=== PATIENT | male | born 1985 | race Caucasian/White ===

== ENCOUNTER 2025-05-31 15:54 | Inpatient (IN) | payer OTHER, SELFPAY ==
[2025-05-31] VITALS (14 sets, daily range): BP systolic 109–152; BP diastolic 69–136; BMI 30.6; BMI 29.9
--- NOTE | 2025-05-31 13:29 | CON.CAR ---
Addendum entered and electronically signed by Bruce Corral MD 05/31/25 16:40:
Attending addendum: Patient seen and examined. PA note reviewed and findings independently confirmed by me. I have met and examined the patient independently. Briefly, this is a 40-year-old gentleman with a longstanding medical history of poorly
controlled diabetes, hypertension, hyperlipidemia, peripheral vascular disease s/p right BKA and nonhealing wound on the left leg. He presented to [facility] for evaluation of chest pressure and shortness of breath. His symptoms began the
evening before admission. He denies any prior history of chest discomfort. He states that he is diabetes since his 20s and had not really paid much attention to glycemic control until recently. He was admitted to [facility] for
approximately 2 months over the summer 2023. He underwent right below the knee amputation for nonhealing ulcer. He currently has a nonhealing wound on the left foot.
He is currently chest pain free. He received furosemide 80mg x 1 without significant diuresis.
He was found to have a Cr. of 2.0, K of 6.4, Gluc: 506, a ProBNP of 7670
-05/31/2025: Echo: LV: Normal size and EF 20-25% with mid-distal anterior, apical, mid-distal anterolateral, distal inferior HK. RV: Normal, LA: Normal, RA: Normal, MV: Mild MR, AV: No AI or , TV: Trace TR with PAP 35-40 mmHg
05/31/2025: CT chest: Extensive bilateral airspace disease suspicious for multifocal pneumonia vs interstitial pulmonary edema
ECG: Sinus rhythm with diffuse ST depression II,III, aVF and V4-V6.
Physical exam:
GEN: AAO x 3. He is arousable and conversant but immediately closes his eyes and falls back to sleep when you stop talking to him. He denies chest discomfort. Lying at 30-degrees and looks comfortable. No acute distress
HEENT: NC/AT, sclera are anicteric
NECK: Elevated JVP
LUNGS: Scattered wheezing with diffuse rhonchi base to apex. Scattered crackles.
CV: Regular rate and rhythm. Normal S1/S2. No S3, No S4. Murmur: None
ABD : Soft, NT, ND, No HSM. Bowel sounds are present.
EXT: Right below knee. Left trace edema. Sock is worn on the left foot. No radial pulse bilaterally. Femoral pulses are diminished.
IMPRESSION:
-Non ST elevation: Currently chest pain free
-Dilated cardiomyopathy presumed ischemic / Acute on chronic combined systolic and diastolic congestive hear failure.
-Suspected multivessel coronary artery disease
-Poorly controlled diabetes mellitus
-Unknown Lipids
-Severe PVDz s/p right BKA and nonhealing wound
-Renal insufficiency: Suspect some degree of acute on chronic
-Hyperkalemia
RECOMMENDATIONS:
-Trend serial troponin, obtain fasting lipids and HgbA1c
-Clinically and radiographic evidence of significant volume overload: Likely benefit from IV nitro and IV furosemide
-Will need Nephrology consult to address multiple issues including presumed acute on chronic renal insufficiency, Hyperkalemia
-Medical therapy to include:
IV heparin
High intensity statin beginning this evening
aspirin +/- Plavix
IV Furosemide
Eventual addition of heart failure recommended beta earnest
KELSY / ARB when renal function stabilizes
Possible spironolactone when renal function stabilizes
-Will clearly need invasive angiography with high clinical suspicion for multivessel coronary artery disease
-Contrast load earlier today will need to watch renal funciton.
Original Note:
Consultation
Consultation Request
Date/Time Consultation Requested: 05/31/25
Date/Time Consultation Performed: 05/31/25
Requesting Provider: Dr. Calderón in the ER
Performing Provider: Dr. KUNAL Ledesma
Reason for Consultation: Chest pain, SOB
Medical History
-
History of Present Illness:
Patient came to the ER with chest pain and SOB and cardiology is consulted for symptoms and abnormal ECG. Patient says chest pain started while seated at his computer last night. Pain is substernal without radiation. He has SOB that has been
persistent since pain started. Pain comes and goes, pain will start spontaneously at rest and last for an hour before spontaneously resolving. He has never had a pain like this before. He came to the ER today due to ongoing symptoms. Patient has no
h/o CAD, but has a previous right BKA from 04/2024. Patient was admitted to [facility] from 2 months in the summer 2023, but patient does not recall having cardiac work up and specifically denies peripheral angiogram prior to BKA. Patient's mother has a h/o
recurrent DVT. Patient's father shared concerns that patient is sedentary. Patient sent for CTA for PE and it ended up being negative for PE. Patient returned to the ER and had urgent bedside echo that showed EF 15-20% and only the inferior and
basal segments move well. In that time Troponin returned at 2.1 and pro-BNP 7670.
PMH:
Type 1 diabetic since age 24
PAD s/p right BKA
Past Medical History
Past Medical History: Other (in HPI)
Past Surgical History: Other (right BKA at [facility] 04/2024)
Social History
Tobacco: Non-Smoker
Alcohol: Occasional
Drug: None
Personal: Single
Living: With Family (living with his parents since BKA summer 2023)
Family History
Family History: Other (mother with recurrent DVTs and chronic Eliquis)
Allergies / Home Medications
Allergy/AdvReac Type Severity Reaction Status Date / Time
No Known Allergies Allergy Unverified 05/31/25 12:58
Review of Systems
-
History Source: Patient and Family (father sitting bedside helps with HPI)
All other systems: Negative unless noted
Physical Exam
Vital Signs
Temp Pulse Resp BP Pulse Ox
98.8 F 117 16 137/94 87
05/31/25 12:48 05/31/25 12:48 05/31/25 12:48 05/31/25 12:48 05/31/25 12:48
GEN: AAOx3
HEENT: EOMI, MMM
LUNGS: 2 L NC. Dyspneic with conversation. Clear anterolaterally without wheeze
CV: Sinus tachycardia on tele. Reg, S1/S2, no murmur
ABD: soft, BS+, NT, ND
EXT: s/p right BKA. Left LE +1-2 edema. LLE foot wound covered with dressing from home.
NEURO: Gross non-focal
SKIN: No rash
Lab Results
CBC 05/31/2025: Hgb 10.3, HCT 30.3, WBC 11.7, PLT 221,000
CMP: Sodium 131, potassium 6.4, BUN 47, creatinine 2.0, glucose 506, troponin 2.11, proBNP 7670, AST 30, ALT less than 30
Impression / Plan
-
PCP Dr. Dahl affiliated with [facility]
Cardiology: None
Impression:
Presented with chest pain, SOB and hypoxia 05/31/25
ACS
Elevated Troponin, initial Troponin 2.1
CM EF 15-20% by preliminary echo 05/31/25
Anterior and anterolateral WMA on echo 05/31/25
JASON on possible CKD
Hyperkalemia
Type 1 diabetic since age 24
Hyperglycemia
PAD s/p right BKA
Acute HFrEF
Echo 04/26/24: [facility] study, EF 55-60%, no significant valve disease
Echo 05/31/25: EF 15-20%, inferior and basal segments move best
Labs 11/08/2024: Labs from PCP office, blood sugar 210, BUN 34, creatinine 1.23, sodium 135, potassium 5.0, AST 17, ALT 17
Plan:
-Patient came to the ER with chest pain and SOB and cardiology is consulted for symptoms and abnormal ECG. Patient says chest pain started while seated at his computer last night. Pain is substernal without radiation. He has SOB that has been
persistent since pain started. Pain comes and goes, pain will start spontaneously at rest and last for an hour before spontaneously resolving. He has never had a pain like this before. He came to the ER today due to ongoing symptoms. Patient has no
h/o CAD, but has a previous right BKA from 04/2024. Patient was admitted to [facility] from 2 months in the summer 2023, but patient does not recall having cardiac work up and specifically denies peripheral angiogram prior to BKA. Patient's mother has a h/o
recurrent DVT. Patient's father shared concerns that patient is sedentary. Patient sent for CTA for PE and it ended up being negative for PE. Patient returned to the ER and had urgent bedside echo that showed EF 15-20% and only the inferior and
basal segments move well. In that time Troponin returned at 2.1 and pro-BNP 7670.
-ECG reviewed by me with sinus tachycardia and inferior and anterior ST changes.
-Initial Troponin 2.1. Patient had chest pain on arrival to ER and now reports that he is pain free with oxygen and Heparin gtt. Will manage as NSTEMI.
-Agree with Heparin gtt
-Aspirin 324 mg PO x1 given in the ER. Patient was not taking a daily aspirin prior to admission
-Lopressor 25 mg PO x1 now
-Urgent bedside echo as noted above.
-Patient with JASON, Cre was 2.0 on admission and baseline Cre 1.23 in 11/2024 based on records I got when I called his PCP. I also updated patient's PCP on current situation and left my phone number in case they wanted to call back to discuss.
-Also noted to be hyperkalemic and glucose and insulin have been given.
-Check CVE, patient was not taking a statin prior to admission
-Patient was diagnosed with type 1 diabetes at age 24 after passing out at a republic[employer] with friends, but not waking up. Patient's father feels that patient does not check blood sugars regularly, he does not use a Dexcom and instead uses fingerstick
glucose monitoring at home and it is unclear how often he completes this. Patient reports his last HgbA1c was 7%, but cannot tell me when that was completed other than to say it was around the time that he had his 2-month hospitalization at [facility].
Patient's father also reports that he does not often see patient giving himself insulin injections and questions how often that is happening.
-Case reviewed with patient's father bedside, ER attending and then hospitalist attending.
[2025-05-31] MEDS: ASPIRIN 325 MG PO (13:31)
[2025-05-31 13:34] LABS: Hematocrit 30.3 % (39.0-52.0); Hemoglobin 10.3 g/dL (13.0-18.0); Mean Corp Hgb Conc. 34.0 g/dL (33.0-37.0); Mean Corpuscular Volume 89.1 fL (80.0-94.0); Nucleated Red Blood Cells % 0 % (-); Platelet Count 221 10^3/uL (130-400); Red Cell Dist. Width 13.1 % (11.5-14.5)
--- NOTE | 2025-05-31 13:40 | ED.GENMED ---
History of Present Illness
General
Chief Complaint: Weakness
Source: patient
Exam Limitations: none
Time Seen by Provider: 05/31/25 13:16
Nursing documentation reviewed up to this point in time: agreed with
History of Present Illness
History of Present Illness:
40-year-old male long-term diabetic status post BKA on the right presents with chest pain and shortness of breath with weakness onset about 3 days ago describes a pressure in his chest intermittent whole body feels weak here he is tachycardic
hypoxic mother has a history of blood clots he tells me
Past History
Past History
ED Past Medical History: IDDM; Negative [place]
ED Past Surgical History: Negative Cardiac
Social History
Tobacco: Non-smoker
Alcohol: None
Drug: None
Living: with family
Employment: Employed
Family History
Family History: Diabetes
Review of Systems
Review of Systems
All Other Systems: Not applicable
Constitutional: Reports fatigue; Denies fever
EENT: Reports no symptoms
Respiratory: Reports trouble breathing
Cardiac: Reports chest pain; Denies diaphoresis or syncope
ABD/GI: Reports no symptoms
: Reports no symptoms
Musculoskeletal: Reports muscle stiffness
Skin: Reports no symptoms
Neurological: Reports weakness
Endocrine: Reports no symptoms
Psychiatric: Reports no symptoms
Phy Exam
Physical Exam
Physical Exam:
Physical Exam
General: Ill-appearing male
Neck: No jaundice
Heart: Tachycardic
Lungs: Diminished breath sounds
Abdomen: Obese none
Neuro: alert and oriented. no focal neurological deficits
Skin: no rash
Psychiatric: well kept. interactive and cooperative
Extremities: BKA on the right
Course
Orders/Labs/Results
Orders:
Orders
05/31/25 12:55
Electrocardiogram (*1) Urgent
Reason for Study: Chest Pain
05/31/25 12:56
EKG- Treatment ONCE
05/31/25 13:19
CT Chest PE Study Stat
Comment:
Reason For Exam: cp sob hr 117
CR Chest Single View Stat
Reason For Exam: spb
05/31/25 13:22
Aspirin 325 mg PO NOW STA
05/31/25 13:26
B-Hydroxybutyrate Urgent
Comment: ADD ON
COVID-19 Antigen Urgent
Source: Nasal Swab
Complete Blood Count/With Diff Urgent
Comprehensive Metabolic Panel Urgent
NT-proBNP Urgent
Comment: ADD ON
PTT Urgent
Troponin I Urgent
Influenza A+B Rapid Molecular Urgent
QUINTON Source: Nasal Swab
Specimen Description:
05/31/25 13:36
CARDIOLOGY CONSULT Urgent
Consulting Provider: Bruce Ledesma
Was physician already notified: Yes
05/31/25 13:37
Echo 2D MMode Color/Doppler Urgent
Reason for Study: sob cp
05/31/25 13:45
Add On- LAB Urgent
Tests Added?: proBNP
05/31/25 14:08
Calcium Gluconate 1,000 mg IV NOW STA
Dextrose 50%-Water [Dextrose 50% Syringe] 12.5 grams IV [id number] PRN
Insulin Human Regular [Novolin R] 10 units IV NOW STA
Sodium Bicarbonate 50 meq IV NOW STA
05/31/25 14:09
Bedside Glucose PRE IV Insulin- HyperK+ NOW
05/31/25 14:19
Glucose Stat
05/31/25 14:22
Furosemide [Lasix] 80 mg IV NOW STA
05/31/25 14:40
NEPHROLOGY CONSULT Routine
Consulting Provider: Antwon Bourne
Was physician already notified: Yes
05/31/25 14:45
Add On- LAB Urgent
Tests Added?: Beta hydroxybutyrate
Electrocardiogram (*1) Urgent
Reason for Study: Chest Pain
EKG- Treatment ONCE
05/31/25 14:51
Heparin 4,000 units IV NOW STA
Nursing to Place Non Medication Order As Directed
Physician Order: PTT 6 hours after initial start of Heparin infusion
05/31/25 14:55
PTT Urgent
Comment: Obtain baseline before beginning heparin infusion if not already collected
05/31/25 15:00
Heparin 81110 Units/250 ml 25,000 units in 250 ml IV PER PROTOCOL
Weight to be used for heparin protocol in kilograms (kg):: 99.4
Protocol:: Cardiac Tx/Acute Coronary
PTT Goal Range to be used:: PTT 73 to 111 seconds
Order type:: Initial
INITIAL Infusion Dose (UNITS/KG/hr) & then follow protocol:: 12 units/kg/hr
Infusion Dose in UNITS/hr & then follow protocol (UNITS/hr):: 1,000
INFUSION RATE in mL/hr & then follow protocol (mL/hr):: 10
PTT less than or equal to 64 seconds:: Increase rate by 200 units/hr (+ 2 mL/hr)
PTT 64.1 to 72.9 seconds:: Increase rate by 100 units/hr (+ 1 mL/hr)
PTT 73 to 111 seconds:: Target Range. No change in rate.
PTT 111.1 to 130.9 seconds:: Decrease rate by 100 units/hr (- 1 mL/hr)
PTT 131 to 199.9 seconds:: HOLD for 1 hr. Then decrease rate by 200 units/hr (- 2 mL/hr)
PTT greater than or equal to 200 seconds:: HOLD for 2 hrs & Notify Provider. Then decrease by 200 units/hr (-
2 mL/hr)
Lab follow-up:: Each change, PTT q6h until 2 consecutive are therapeutic. Then PTT
daily.
05/31/25 15:07
Metoprolol [Lopressor] 25 mg PO NOW STA
05/31/25 15:25
Notify MD As Directed
Notify physician if: Nurse to contact provider when glucose reaches 250 to obtain orders for diet
05/31/25 15:30
Troponin I Urgent
Reg Insulin 100 Units/100 ml [Novolin R Insulin Infusion] 100 units in 100 ml IV PER PROTOCOL
Initial dose in units/hr, then titrate:: 6
05/31/25 15:37
Admit/Transfer Patient As Directed
Co-Sign Provider:
Level of Care: Inpatient admission
Assign to:: IMU- Intermediate Care
Physician / Group: Citlaly Hay
Diagnosis: NSTEMI, hyperglycemia, hyperkalemia
Reason for Hospitalization: NSTEMI, hyperglycemia, hyperkalemia
Expected length of stay greater than two midnights?: Yes
ELOS- Estimated Length of Stay in days: 4
I certify the patient meets the requirements for IP care: Yes
PRN Pain Medication Management As Directed
May give lesser potent ordered pain med per pt: Yes
preference::
Protocol:: Medication orders for pain may be administered in a
manner that supports deferring to patient preference
when the pt is:
- Requesting an ordered lesser potent pain medication.
Least to most potent pain medications are defined
as: acetaminophen < NSAID < tramadol < opioids
(morphine, oxycodone, hydromorphone).
- Requesting a lesser dose of the same medication IF
ORDERED.
- Requesting a less intrusive route of administration
if both routes are prescribed by the provider (PO <
IV).
05/31/25 15:39
Code Status As Directed
Resuscitation Status: Full Code
Bedside Glucose POST IV Insulin- HyperK+ Q1HX2,Q2HX2
05/31/25 15:56
Glucose Stat
05/31/25 16:00
Bedside Glucose Monitoring As Directed
Frequency: Q1H
05/31/25 16:39
BMP [Basic Metabolic Panel] Urgent
05/31/25 20:00
Basic Metabolic Panel Q4
06/01/25 00:00
Basic Metabolic Panel Q4
06/01/25 04:00
Basic Metabolic Panel Q4
06/01/25 08:00
Basic Metabolic Panel Q4
06/01/25 12:00
Basic Metabolic Panel Q4
Abnormal Lab Results
05/31/25 05/31/25 05/31/25
13:26 14:19 15:30
WBC 11.7 H 10^3/uL
(4.8-10.8)
RBC 3.40 L 10^6/uL
(4.70-6.10)
Hgb 10.3 L g/dL
(13.0-18.0)
Hct 30.3 L %
(39.0-52.0)
Abs Immat Gran (auto) 0.1 H 10^3/uL
(0-0.05)
Absolute Neuts (auto) 10.3 H 10^3/uL
(1.4-6.5)
Absolute Lymphs (auto) 0.8 L 10^3/uL
(1.2-3.4)
Immature Gran % 0.8 H %
(0-0.5)
Neutrophils % 87.5 H %
(42.2-75.2)
Lymphocytes % 6.6 L %
(20.5-51.1)
Sodium 131 L mmol/L
(135-145)
Potassium 6.4 H* mmol/L
(3.5-5.1)
Carbon Dioxide 17 L mmol/L
(22-30)
BUN 47 H mg/dl
(9-20)
Creatinine 2.0 H mg/dL
(0.7-1.3)
Glucose 506 H* mg/dl 474 H* mg/dl
(70-99) (70-99)
Troponin I 2.110 H* ng/ml 2.900 H* D ng/ml
B-Hydroxybutyrate 1.11 H mmol/L
(0.02-0.27)
05/31/25 13:26
05/31/25 14:19
Vital Signs
Initial and Last Documented VS:
Initial Vital Signs
Temp Pulse Resp BP Pulse Ox
98.8 F 117 16 137/94 87
05/31/25 12:48 05/31/25 12:48 05/31/25 12:48 05/31/25 12:48 05/31/25 12:48
Last Documented Vital Signs
Temp Pulse Resp BP Pulse Ox
98.8 F 112 16 124/91 87
05/31/25 12:48 05/31/25 13:30 05/31/25 12:48 05/31/25 13:27 05/31/25 13:42
MDM/Problems Addressed
Differential Diagnosis Includes:
PE heart failure ACS pneumonia aspiration pneumothorax
MDM/Problems Addressed:
Chest pain shortness of breath
Chronic conditions affecting care: DM
Acute Exacerbation and/or Progression of Chronic Illness: DM
*Radiology
Radiology exam reviewed: radiology read reviewed
*Pulse Oximetry
SaO2: 87
Oxygen Mode of Delivery: Room air
Patient hypoxic: yes
*EKG
Interpreted by ED Provider?: Yes
Interpretation: abnormal
Comparison EKG: no comparison EKG present
Heart Rate: 118
Rate: tachycardiac
Rhythm: sinus
Ischemia: ST depression
*Jewelry Cutter Interpretation
Rate: tachycardiac
Interpretation: abnormal
Heart Rate: 118
Rhythm: sinus
*Critical Care Note
Total Time (30-74mins, 75-104mins- exclusive of procedures): 40
Update Note
Update Note:
2:20 PM update
Chest x-ray noted CT reviewed with radiology heart failure versus pneumonia suspect more heart failure troponin noted proBNP noted labs noted will treat with Lasix calcium insulin
Multiple conversations with cardiology will start on heparin plan for cath today, nephrology also been consulted hospitalist notified
CRITICAL CARE STATEMENT: A total of 40 minutes of critical care time was provided for this patient. This includes management of unstable vital signs, evaluation of the patient at bedside, reviewing the patient's pertinent medical records discussion
with EMS providers and patient's family in addition to discussion with consultants, review of old EKGs and review of pertinent medical records. This time with separate from time utilized to perform the aforementioned documented procedures
ED Attending Note
-
Portions of this chart may have been created with voice recognition software.� Occasional wrong word or��sound alike� substitutions may have occurred due to the inherent limitations of voice recognition software.
Discharge Plan
Departure
Patient Disposition: Admit
Date of Disposition: 05/31/25
Time of Disposition: 14:47
Admit to: ICU
Presentation/result/management discussed w/ accepting MD/DO: Hospitalist
Patient with high blood pressure during this ER visit?: No
Condition: Serious
Discharge Problem:
ACS (acute coronary syndrome), CHF (congestive heart failure), Diabetes, Acute kidney injury, Acute hyperkalemia
Interventions
Interventions:
*Risk Screen - Suicide Last Done: 05/31/25 12:52
*General Assessment Last Done: 05/31/25 12:48
*Neglect/Abuse Screening Last Done: 05/31/25 12:48
*ED- Fall Risk Assessment Last Done: 05/31/25 12:48
*ED COVID-19 Vaccine History Last Done: 05/31/25 12:48
ED- Cardiac Assessment Last Done: 05/31/25 13:42
ED- Neurological Assessment Last Done: 05/31/25 13:42
ED- Pulmonary Assessment Last Done: 05/31/25 13:42
[2025-05-31 13:46] LABS: APTT 26.8 Sec (23.4-35.0)
[2025-05-31 13:54] LABS: AST (SGOT) 30 U/L (17-59); Albumin 3.9 g/dl (3.5-5.0); Alkaline Phosphatase 116 U/L (38-126); Blood Urea Nitrogen 47 mg/dl (9-20); Calcium 8.4 mg/dl (8.4-10.2); Carbon Dioxide 17 mmol/L (22-30); Chloride 104 mmol/L (98-107); Glucose 506 mg/dl (70-99); Sodium 131 mmol/L (135-145); Total Protein 6.5 g/dl (6.3-8.2); eGFR 42.47
[2025-05-31 14:02] LABS: Troponin I 2.110 ng/ml
[2025-05-31 14:03] LABS: COVID-19 Antigen Negative (Negative)
[2025-05-31 14:06] LABS: ALT (SGPT) < 30 U/L (0-50); Potassium 6.4 mmol/L (3.5-5.1)
[2025-05-31] MEDS: LASIX 80 MG IV (14:26)
[2025-05-31] MEDS: SODIUM BICARBONATE 50 MEQ IV (14:26)
[2025-05-31] MEDS: NOVOLIN R 10 UNITS IV (14:27)
[2025-05-31] MEDS: CALCIUM GLUCONATE 1000 MG IV (14:27)
--- NOTE | 2025-05-31 14:57 | HPS.HSE ---
Family Physician
-
Family Physician:
Chief Complaint
-
chest pain and shortness of breath
History of Present Illness
Mr. Francis Leon is a 40 yo man with hx DM 1, PAD s/p BKA (2023) right presents to the ER with chest pain and shortness of breath.
Patient states symptoms started last night, hadn't experienced similar symptoms prior. Persisted this AM and so he came to the ER. No recent fevers/chills. Mild cough over past two weeks, non-productive. He denies swelling. He is currently
chest pain free.
No nausea/vomiting/diarrhea. No rash.
He denies smoking or alcohol use.
Patient states he hasn't missed any insulin doses but had a big bowl of Ramen which always causes his blood sugar to spike.
Medical History
Past Medical History
Past Medical History: Reports Other
Past Surgical History: Reports Orthopedic
Social History
Tobacco: Non-smoker
Alcohol: None
Family History
Family History: Not pertinent
Allergies / Home Medications
Allergies reflects when Allergies were last updated in [employer].
Home Medications with original date entered in [employer]
Allergy/Medication List:
Allergies
Allergy/AdvReac Type Severity Reaction Status Date / Time
No Known Allergies Allergy Unverified 05/31/25 12:58
Home Medications
insulin glargine 100 unit/mL (3 mL) subcutaneous pen (Lantus Solostar U-100 Insulin) 14 unit SC HS 05/31/25
insulin lispro 100 unit/mL subcutaneous pen 6 sliding scale dose SC AC 05/31/25
Review of Systems
-
History Source: Patient
A 12 point ROS was completed and negative except as noted: Yes
Physical Exam
Vital Signs
Vital Signs
Temp Pulse Resp BP Pulse Ox
98.8 F 112 16 124/91 87
05/31/25 12:48 05/31/25 13:30 05/31/25 12:48 05/31/25 13:27 05/31/25 13:42
Physical Exam
General: No Apparent Distress
HEENT: PERRLA
Respiratory: Clear; No Wheezes
Cardiac: S1/S2 and Regular Rhythm
GI: Soft and Non Tender
Skin: Warm and Dry; No Rash
Neuro: AO x 3
Psych: Calm
Laboratory Results
-
05/31/25 13:26
Laboratory Results
APTT 26.8 Sec (23.4-35.0) 05/31/25 13:26
Total Bilirubin 0.6 mg/dl (0.2-1.3) 05/31/25 13:26
AST 30 U/L (17-59) 05/31/25 13:26
ALT < 30 U/L (0-50) 05/31/25 13:26
Alkaline Phosphatase 116 U/L (38-126) 05/31/25 13:26
Troponin I 2.110 ng/ml H* 05/31/25 13:26
Data Reviewed
-
Diagnostic Radiology: Report Reviewed by me
Lab Data: Labs Reviewed by me
Impression/Plan
-
Mr. Francis Leon is a 40 yo man with hx DM 1, PAD s/p BKA right presents to the ER with chest pain and shortness of breath.
Triage VS: T 98.8, P 117, RR 16, BP 137/94, SpO2 87%
LABS: WBC 11.7, Hg 10.3, PLT 221, Na 131 (corrected 137), K+ 6.4, CO2 17, Cr 2.0, Glucose 506, AG = 10
liver enzymes WNL
Troponin 2.11
BNP 7670
Covid negative
EKG: sinus tach @ 114, ST depressions II, aVF, V5, V6
CHEST CT
IMPRESSION:
1. Negative for pulmonary embolism.
2. Fairly extensive bilateral airspace disease suspicious for multifocal pneumonia. Small bilateral pleural effusions, right greater than left with areas of interlobular septal thickening within both lower lobes. Pulmonary edema is also a
diagnostic consideration.
3. Additional findings above.
CXR
IMPRESSION:
Diffusely increased interstitial opacities with symmetric distribution with more confluent airspace disease within the lung bases. Radiographically, findings suggestive of pulmonary edema with multifocal pneumonia also consideration. No significant
pleural effusions.
MAR aspirin 325mg PO x 1, Lasix 80mg IV x 1, IV heparin gtt, Sodium bicarb 10 units regular insulin
NSTEMI
-s/p aspirin and initiation of IV heparin gtt
-bedside echo in the ER with WMA
-admit to IMU
-Cardiology consulted, plan for cardiac cath once labs more stable
-NPO after MN
-continue daily aspirin
-new start Lipitor 40mg qhs
-trend Troponin
-F/U A1c, Lipid profile
DM 1
Hyperglycemia
Non-Gap Metabolic Acidosis
-patient without anion gap acidosis but with hyperglycemia with BGL in 400's, hyperkalemia and NSTEMI, will start IV insulin gtt
-DM DONOR TECHNICIAN consult
-avoid fluids as patient is fluid overloaded
-monitor labs closely
-NPO until BGL < 250
-F/U A1c
Heart Failure reduced EF, acute exacerbation
Hypoxic Respiratory Insufficiency
-new diagnosis of heart failure with EF 15-20% seen on bedside echo in the ER with significant WMA
-abnl CT most suggestive of pulmonary edema as patient without symptoms suggestive of pneumonia
Hyperkalemia
-s/p lasix and IV insulin in the ER; IV Insulin gtt initiated
-repeat labs at 4:30 PM, q 4h BMP
-patient is NPO
Acute Kidney Injury
-Nephrology consulted
-patient s/p contrast load for CTA
-monitor closely with diuresis
DVT PPx IV heparin gtt
FULL CODE
Total Critical Care Time 60 minutes. I was immediately available to the patient and staff. I personally examined, reviewed labs, diagnostic images/reports, interpretations, treatment plans, discussed patient care with other providers and family
or caregivers (if patient is unable to make decisions), entered orders as appropriate and documented the medical record.
[2025-05-31] MEDS: HEPARIN 4000 UNITS IV (15:00)
[2025-05-31 15:03] LABS: Glucose 474 mg/dl (70-99)
[2025-05-31] MEDS: HEPARIN 25000 UNITS/250 ML IV (15:05)
[2025-05-31 15:13] LABS: APTT 26.0 Sec (23.4-35.0)
[2025-05-31] MEDS: LOPRESSOR 25 MG PO (15:17)
[2025-05-31 16:09] LABS: Troponin I 2.900 ng/ml
[2025-05-31] MEDS: NOVOLIN R INSULIN INFUSION 100 IV (16:12)
[2025-05-31 16:13] LABS: Glucose 403 mg/dl (70-99)
[2025-05-31] MEDS: NITROGLYCERIN PREMIX 250 IV (16:45)
--- NOTE | 2025-05-31 17:22 | W.CON.NEPH ---
Consultation
-
Date/Time Consultation Requested: May 31, 2025 4:30 PM
Date/Time Consultation Performed: May 31, 2025 5 PM
Requesting Provider: Dr. Calderón
Performing Provider: Dr. Bourne
Reason for Consultation: Acute kidney injury
Medical History
-
Chief Complaint: Acute kidney injury and hyperkalemia
History of Present Illness:
40-year-old male type I diabetic since his 20s status post BKA on the right presents with chest pain and shortness of breath with weakness onset about 3 days ago describes a pressure in his chest intermittent
Renal consultation was requested for creatinine of 2 and a potassium of 6.4
Patient has never seen a yarder but was told his kidney numbers were ' elevated' but unsure what his creatinine is normally.
Patient was found to have DKA as well as NSTEMI.
Past Medical History
Type 1 diabetes, BKA
Social History
Tobacco: Non-Smoker
Alcohol: None
Family History
Father diabetes type 2
Allergies / Home Medications
Allergy/AdvReac Type Severity Reaction Status Date / Time
No Known Allergies Allergy Unverified 05/31/25 12:58
�Medication �Instructions �Recorded �Confirmed �Type
insulin glargine 100 unit/mL (3 14 unit SC HS 05/31/25 05/31/25 History
mL) subcutaneous pen (Lantus
Solostar U-100 Insulin)
insulin lispro 100 unit/mL 6 sliding scale dose SC AC 05/31/25 05/31/25 History
subcutaneous pen
Review of Systems
-
Chest pressure no active pressure at this time. No urinary frequency urgency or hesitancy or hematuria
All other systems: Negative unless noted
Physical Exam
Vital Signs
Vital Signs
Temp Pulse Resp BP Pulse Ox
98.8 F 101 22 123/91 90
05/31/25 12:48 05/31/25 16:45 05/31/25 16:30 05/31/25 17:06 05/31/25 17:07
Lab Results
WBC 11.7 10^3/uL (4.8-10.8) H 05/31/25 13:26
RBC 3.40 10^6/uL (4.70-6.10) L 05/31/25 13:26
Hgb 10.3 g/dL (13.0-18.0) L 05/31/25 13:26
Hct 30.3 % (39.0-52.0) L 05/31/25 13:26
Plt Count 221 10^3/uL (130-400) 05/31/25 13:26
eGFR 42.47 05/31/25 13:26
Xbe-E-Kujdlktavib Pept 7670 pg/ml 05/31/25 13:26
Albumin 3.9 g/dl (3.5-5.0) 05/31/25 13:26
Physical Exam
General no acute distress
HEENT no cephalic atraumatic extraocular muscle intact no scleral icterus no JVD neck supple
lungs clear to auscultation bilateral
heart regular S1-S2 positive
abdomen soft nontender positive bowel sounds
extremities no edema pulses present bilateral right BKA
Neurologically nonfocal alert and oriented x 3
Skin no lesions no abrasions no petechiae
Psych normal affect no bizarre behavior
Data Reviewed
-
Radiology: Image Personally Visualized and interpreted
CT Scan: Image Personally Visualized and interpreted
Labs: Labs Reviewed by me, Discussed with Patient and Discussed with Family
Assessment/Plan
-
40-year-old male type I diabetic since his 20s status post BKA on the right presents with chest pain and shortness of breath with weakness onset about 3 days ago describes a pressure in his chest intermittent
Renal consultation was requested for creatinine of 2 and a potassium of 6.4
Patient has never seen a yarder but was told his kidney numbers were ' elevated' but unsure what his creatinine is normally.
Patient was found to have DKA as well as NSTEMI.
Status post CTA rule out PE negative
Impression.
Acute kidney injury uncertain baseline.
Pneumonia versus CHF.
Leukocytosis.
NSTEMI.
Hyperkalemia
Type 1 diabetes
DKA
Plan
DKA protocol
Heparin drip
Antibiotics
Urine indices ordered
Echocardiogram
Cardiology consult
Chemistries ordered
Check renal ultrasound
[2025-05-31 17:23] LABS: Glucose - Point of Care 327 mg/dl (70-99)
[2025-05-31] MEDS: LIPITOR 80 MG PO (17:44)
[2025-05-31 17:57] LABS: Troponin I 5.100 ng/ml
--- NOTE | 2025-05-31 17:59 | PTCARENOTE ---
Pt received from ED via stretcher. Pt shifted self over to unit bed without assistance. AAOx3. Drowsy. Denying pain at this time. Sinus tach on quality assurance monitor body. HR 90s - 100s. MAP > 65. Nitro gtt infusing @ 5 mcg/min. Pt denying chest pain. +1
pitting edema to LLE. Heparin gtt infusing @ 1000 units/hr. SaO2 94% on 6L NC. Harsh nonproductive frequent cough. Right base with coarse crackles. Diminished throughout with scattered rhonchi. Round abdomen. Pt NPO per orders. Insulin gtt infusing
per protocol, currently infusing @ 4 units/hr. Pt with (R) BKA. Left foot with diabetic ulcers. Pt states mom does wound care at home. Pt asked to bring instructions for wound care in.
[2025-05-31 18:11] LABS: Blood Urea Nitrogen 45 mg/dl (9-20); Calcium 8.6 mg/dl (8.4-10.2); Carbon Dioxide 17 mmol/L (22-30); Chloride 107 mmol/L (98-107); Estimated Creatinine Clearance 58 ml/min; Glucose 332 mg/dl (70-99); Potassium 5.3 mmol/L (3.5-5.1); Sodium 136 mmol/L (135-145); eGFR 48.20
[2025-05-31 18:11] LABS: Glucose - Point of Care 276 mg/dl (70-99)
[2025-05-31 19:12] LABS: Glucose - Point of Care 228 mg/dl (70-99)
[2025-05-31] MEDS: COREG 3.125 MG PO (20:01)
[2025-05-31 20:12] LABS: Glucose - Point of Care 193 mg/dl (70-99)
--- NOTE | 2025-05-31 20:13 | W.PN.UPDATE ---
Update Note
Progress Note Update
most recent glucose 193 after eating dinner
will transition to Lantus
Given patient is NPO after MN, will give Lantus 10 units and ISS, to be adjusted tomorrow with pre-meal insulin when diet ordered
once off insulin gtt can stop q4 BMP's
BMP to be done now to monitor K
[2025-05-31 20:43] LABS: APTT 37.9 Sec (23.4-35.0)
[2025-05-31 20:48] LABS: Blood Urea Nitrogen 50 mg/dl (9-20); Calcium 9.0 mg/dl (8.4-10.2); Carbon Dioxide 19 mmol/L (22-30); Chloride 106 mmol/L (98-107); Estimated Creatinine Clearance 55 ml/min; Glucose 195 mg/dl (70-99); Potassium 5.3 mmol/L (3.5-5.1); Sodium 135 mmol/L (135-145); eGFR 45.17
[2025-05-31] MEDS: LANTUS 0.1 UNITS SC (20:52)
[2025-05-31 21:03] LABS: Troponin I 8.230 ng/ml
[2025-05-31 21:58] LABS: Glucose - Point of Care 159 mg/dl (70-99)
[2025-06-01] VITALS (23 sets, daily range): BP systolic 110–145; BP diastolic 70–99
[2025-06-01 04:00] LABS: APTT 38.1 Sec (23.4-35.0)
[2025-06-01 04:10] LABS: Blood Urea Nitrogen 52 mg/dl (9-20); Calcium 8.6 mg/dl (8.4-10.2); Carbon Dioxide 23 mmol/L (22-30); Chloride 106 mmol/L (98-107); Estimated Creatinine Clearance 50 ml/min; Glucose 218 mg/dl (70-99); HDL Cholesterol 43 mg/dl; Magnesium 2.0 mg/dl (1.6-2.3); Potassium 5.5 mmol/L (3.5-5.1); Sodium 134 mmol/L (135-145); eGFR 40.06
[2025-06-01 04:28] LABS: Troponin I 9.480 ng/ml
[2025-06-01 04:49] LABS: LDL Cholesterol, Direct 150 mg/dl
[2025-06-01 04:52] LABS: Urine Character Clear (Clear)
[2025-06-01 05:29] LABS: Urine Squamous Cell None seen /LPF (Few)
--- NOTE | 2025-06-01 05:56 | PTCARENOTE ---
Received patient on an insulin, heparin, and nitro gtt. 8 pm blood sugar 193. Provider made aware and ordered a diet and lantus. Insulin gtt d/cd an hour later. No complaints of chest pain this shift. Continuing to trend troponins & ekgs to peak.
Heparin gtt running at 1400units/hr. Nitro gtt running at 5mcg/min. Next PTT,troponin, and ekg due at 1000. Patient incontinent of stool. Plan for renal ultrasound today. Will continue to monitor.
[2025-06-01 07:17] LABS: Glycohemoglobin (HgbA1c) 9.1 % (4.0-5.6)
--- NOTE | 2025-06-01 07:59 | PTCARENOTE ---
On walking rounds Pt is AAOx3 pleasant and cooperative. Pt has RBKA. Pt on 6 L O2 at 96%. Heparin is infusing at 14 ml/hr and Nitro at 5 mcg no chest pain at this time. Pt in ST
[2025-06-01] MEDS: COREG 3.125 MG PO ×2 (08:24→20:24)
[2025-06-01] MEDS: LASIX 40 MG IV ×2 (08:25→16:00)
[2025-06-01] MEDS: LOW STRENGTH ASPIRIN 81 MG PO (08:26)
[2025-06-01] MEDS: NOVOLOG FLEXPEN-LOW RESISTANCE 2 UNITS SC ×2 (08:57→12:20)
[2025-06-01] MEDS: NOVOLOG FLEXPEN SC ×3 (08:58→17:16)
[2025-06-01 09:11] LABS: Glucose - Point of Care 240 mg/dl (70-99)
[2025-06-01] MEDS: HEPARIN 25000 UNITS/250 ML IV (11:16)
[2025-06-01 11:24] LABS: Hematocrit 24.8 % (39.0-52.0); Hemoglobin 8.6 g/dL (13.0-18.0); Mean Corp Hgb Conc. 34.7 g/dL (33.0-37.0); Mean Corpuscular Volume 87.3 fL (80.0-94.0); Platelet Count 212 10^3/uL (130-400); Red Cell Dist. Width 13.2 % (11.5-14.5)
[2025-06-01 11:34] LABS: APTT 39.0 Sec (23.4-35.0)
--- NOTE | 2025-06-01 11:42 | W.PN.NEPH.PH ---
Today's Communication / Plan
-
Lasix continue
Assessment/Plan
-
40-year-old male type I diabetic since his 20s status post BKA on the right presents with chest pain and shortness of breath with weakness onset about 3 days ago describes a pressure in his chest intermittent
Renal consultation was requested for creatinine of 2 and a potassium of 6.4
Patient has never seen a set up technician but was told his kidney numbers were ' elevated' but unsure what his creatinine is normally.
Patient was found to have DKA as well as NSTEMI.
Status post CTA rule out PE negative
Impression.
Acute kidney injury uncertain baseline.
Pneumonia versus CHF.
Leukocytosis.
NSTEMI.
Hyperkalemia
Type 1 diabetes
DKA
Plan
DKA protocol
Heparin drip
Antibiotics
Urine indices ordered= protein creatinine ratio 1.7 likely diabetic etiology
Echocardiogram-ejection fraction 15 to 20%
Cardiology consult
Creatinine remains stable potassium improved
Check renal ultrasound no obstructive uropathy. No increased echogenicity with large kidneys at 12 cm consistent with diabetic kidney
This may be his baseline renal function has we do not have any outside laboratories.
Lasix twice daily
-
-
Date of Service: June 01, 2025
CC / HPI / ROS
-
Chief Complaint:
Presents with chest discomfort
History of Present Illness:
Acute versus chronic kidney disease and hyperkalemia with echo cardiogram finding ejection fraction 15 to 20% with DKA
Review of Systems:.
No chest pain or shortness of breath nonoliguric
Labs
-
Labs:
WBC 10.2 10^3/uL (4.8-10.8) 06/01/25 11:14
RBC 2.84 10^6/uL (4.70-6.10) L 06/01/25 11:14
Hgb 8.6 g/dL (13.0-18.0) L 06/01/25 11:14
Hct 24.8 % (39.0-52.0) L 06/01/25 11:14
Plt Count 212 10^3/uL (130-400) 06/01/25 11:14
Sodium Cancelled 06/01/25 12:00
Potassium Cancelled 06/01/25 12:00
Chloride Cancelled 06/01/25 12:00
Carbon Dioxide Cancelled 06/01/25 12:00
BUN Cancelled 06/01/25 12:00
Creatinine Cancelled 06/01/25 12:00
eGFR Cancelled 06/01/25 12:00
Glucose Cancelled 06/01/25 12:00
Calcium Cancelled 06/01/25 12:00
Khm-I-Tgskwsvnodp Pept 7670 pg/ml 05/31/25 13:26
Albumin 3.9 g/dl (3.5-5.0) 05/31/25 13:26
Physical Exam
-
Vital Signs:
Vital Signs
Temp Pulse Resp BP Pulse Ox
98.4 F 107 18 133/99 95
06/01/25 11:24 06/01/25 09:00 06/01/25 09:00 06/01/25 09:00 06/01/25 09:54
Respiratory:: Bilateral: CTA
Lung Excursion:: Normal
Abdomen:: Soft
Bowel Sounds:: Normal
Extremity Edema:: None: Bilateral:
Other Findings::
Right BKA
[2025-06-01 11:55] LABS: Troponin I 6.910 ng/ml
--- NOTE | 2025-06-01 12:19 | W.PN.CARDCBS ---
Today's Communication / Plan
-
Recommendations:
-Will discuss timing of right and left heart catheterization with nephrology. Ideally would prefer 48-72 hours between contrast exposure
-Troponin has peaked and trending lower. Will eventually need cath but for now is chest pain free
-Continue IV Diuresis
-Start hydralazine and continue IV nitro given severe LV dysfunction given Cr. of 2.
Start hydralazine 25mg po tid
Titrate hydralazine as tolerated for goal of 75mg tid
IV Nitro continue for now.
We could probably change from IV to PO nitro in next 24-48 hours if he remains chest pain free...Isosorbide dinitrate 20mg tid is trial based data
-Continue Coreg with slow titration maybe in 24 hours or so to 6.25 mg bid
-Continue high intensity statin
-Will load with Plavix given delay for cath and will start PPI if not already done
-Will need catheterization but needs more diuresis for now.
-Renewed heparin and nitro
-Follow H/H
-I spent 70 minutes reviewing data, discussing with patient and nephrology
Impression / Plan
-
PCP Dr. Dahl affiliated with [facility]
Cardiology: None
Impression:
-NSTEMI with peak troponin of 9.48 : Presented with chest pain, SOB and hypoxia 05/31/25
-Acute on chronic combined systolic and diastolic heart failure
CM EF 15-20% by echo 05/31/25
-Anterior and anterolateral WMA on echo 05/31/25
-JASON on possible CKD
-Anemia: Rectal heme negative today
-Hyperkalemia
-Poorly controlled Type 1 diabetic since age 24
-Hyperglycemia
-PAD s/p right BKA
-Acute HFrEF
Echo 04/26/24: [facility] study, EF 55-60%, no significant valve disease
Echo 05/31/25: EF 15-20%, inferior and basal segments move best
Labs 11/08/2024: Labs from PCP office, blood sugar 210, BUN 34, creatinine 1.23, sodium 135, potassium 5.0, AST 17, ALT 17
Plan:
-Will discuss timing of right and left heart catheterization with nephrology. Ideally would prefer 48-72 hours between contrast exposure
-Troponin has peaked and trending lower. Will eventually need cath but for now is chest pain free
-Continue IV Diuresis
-Start hydralazine and continue IV nitro given severe LV dysfunction given Cr. of 2.
Start hydralazine 25mg po tid
Titrate hydralazine as tolerated for goal of 75mg tid
IV Nitro continue for now.
We could probably change from IV to PO nitro in next 24-48 hours if he remains chest pain free...Isosorbide dinitrate 20mg tid is trial based data
-Continue Coreg with slow titration maybe in 24 hours or so to 6.25 mg bid
-Continue high intensity statin
-Will load with Plavix given delay for cath and will start PPI if not already done
-Will need catheterization but needs more diuresis for now.
-Will need to follow H/H
-I spent 70 minutes reviewing data, discussing with patient and nephrology
Progress Note - Training And Development Officer
Subjective
Date of Service: June 01, 2025
No chest pain but breathing is much better
Objective
Labs:
06/01/25 11:14
06/01/25 12:00
Labs
Hgb 8.6 g/dL (13.0-18.0) L 06/01/25 11:14
Hct 24.8 % (39.0-52.0) L 06/01/25 11:14
Plt Count 212 10^3/uL (130-400) 06/01/25 11:14
APTT 39.0 Sec (23.4-35.0) H 06/01/25 11:14
Sodium Cancelled 06/01/25 12:00
Potassium Cancelled 06/01/25 12:00
BUN Cancelled 06/01/25 12:00
Creatinine Cancelled 06/01/25 12:00
Glucose Cancelled 06/01/25 12:00
Troponins
05/31/25 05/31/25 05/31/25
13:26 15:30 17:00
Troponin I 2.110 H* 2.900 H* D Cancelled
05/31/25 05/31/25 05/31/25
17:00 17:20 20:24
Troponin I Cancelled 5.100 H* D 8.230 H* D
05/31/25 05/31/25 06/01/25
23:00 23:05 03:32
Troponin I Cancelled Cancelled 9.480 H*
06/01/25 06/01/25
11:14 22:30
Troponin I 6.910 H* D Cancelled
Vital Signs and I&O:
Vital Signs
Temp Pulse Resp BP Pulse Ox
98.4 F 104 16 144/91 95
06/01/25 11:24 06/01/25 11:00 06/01/25 11:00 06/01/25 11:00 06/01/25 11:00
Vital Signs
Temp Pulse Resp BP Pulse Ox
98.4 F 104 16 144/91 95
06/01/25 11:24 06/01/25 11:00 06/01/25 11:00 06/01/25 11:00 06/01/25 11:00
Intake & Output
05/29/25 05/30/25 05/31/25 06/01/25
23:59 23:59 23:59 23:59
Intake Total 240 / 240
Output Total 1999 300 / 300
Balance -1999 / -1999 -60 / -60
Physical exam:
Gen: Lying in bed in NAD. Speaks in full sentences
Lungs: Crackles right > left base
CV: RRR
Rectal: Brown heme negative
Ext: Right BKA, left ulcer
[2025-06-01 12:34] LABS: Glucose - Point of Care 241 mg/dl (70-99)
[2025-06-01 12:59] LABS: Glucose - Point of Care 221 mg/dl (70-99)
--- NOTE | 2025-06-01 13:32 | PN.DE.MGMTRT ---
Insulin Management
- -
06/01/2025 Diabetes Management Consult
Patient admitted 05/31 with CP SOB - NSTEMI. H RBKA, type 1 diabetes since age 24. Prior to admission was taking lispro 6 units AC with lantus 14 units @ HS. A1C on admission 9.1%, cr 2.1, eGFR 40.06.
Patient is awake alert and oriented able to discuss diabetes care. States he sees his primary doctor for ongoing diabetes care. Has glucose monitor with adequate supplies.
Glucose on admission 474. Received 10 units lantus @ hs, fasting glucose 218. Will increase hs lantus to 15 units and start AC novolog 5 units with low corrective. Patient for cardiac cath possibly Wednesday.
Discussed with nurse.
Will Follow
Diabetes History
- -
Type of Diabetes: 1
Pre-Admission Diabetes Regimen
05/31/25 05/31/25 05/31/25
13:26 17:20 20:24
Creatinine 2.0 H 1.8 H 1.9 H
06/01/25 06/01/25 06/01/25
00:00 03:32 04:00
Creatinine Cancelled 2.1 H Cancelled
06/01/25 06/01/25
08:00 12:00
Creatinine Cancelled Cancelled
Lab Results
Hemoglobin A1c 9.1 % (4.0-5.6) H 05/31/25 17:20
Insulin Pump Settings
IP Diabetes Regimen
05/31/25 05/31/25 05/31/25
13:26 14:19 15:56
Glucose 506 H* 474 H* 403 H
POC Glucose
05/31/25 05/31/25 05/31/25
17:11 17:20 18:00
Glucose 332 H
POC Glucose 327 H 276 H
05/31/25 05/31/25 05/31/25
19:01 20:01 20:24
Glucose 195 H
POC Glucose 228 H 193 H
05/31/25 06/01/25 06/01/25
21:46 00:00 03:32
Glucose Cancelled 218 H
POC Glucose 159 H
06/01/25 06/01/25 06/01/25
04:00 08:00 08:56
Glucose Cancelled Cancelled
POC Glucose 240 H
06/01/25 06/01/25 06/01/25
12:00 12:19 12:48
Glucose Cancelled
POC Glucose 241 H 221 H
Patient Education
[2025-06-01] MEDS: NOVOLOG FLEXPEN 5 UNITS SC ×2 (14:11→18:09)
[2025-06-01] MEDS: PLAVIX 600 MG PO (14:14)
--- NOTE | 2025-06-01 15:31 | W.PN.HOSP.TC ---
Today's Communication/Plan
-
Assessment / Plan
Assessment / Plan
General: No Apparent Distress, Comfortable and Conversant
HEENT: NormoCephalic, Moist mucous membranes, Atraumatic, nasal cannula in place
Respiratory: Clear and Non Labored Respirations
Cardiac: S1/S2 and Regular Rhythm; No Rub or Gallop
GI: Soft, Non Tender, Non Distended and Normal Bowel Sounds
Musculoskeletal: No Edema, right BKA, left foot wound with dressing CDI
Skin: Warm and dry
: NO Villafana
Neuro: Awake, Alert, Nonfocal/grossly intact
Psych: Calm and Intact Judgment/Insight
Mr. Leon is a 40-year-old male with a medical history of type 1 diabetes mellitus and PAD (status post BKA 2023) who presented with acute onset chest pain and shortness of breath. In the ED, he underwent CT angiography to evaluate which was
negative for pulmonary embolism but did show extensive bilateral pulmonary edema. Lab work revealed significantly elevated troponins. EKG did not show STEMI but did show nonspecific T wave abnormalities. Bedside echo showed severely reduced
ejection fraction with wall motion abnormalities. He was started on IV heparin drip and admitted for further evaluation and management.
NSTEMI, acute HFrEF:
- Continue IV heparin drip
- Echocardiogram shows LVEF 15 to 20% with regional wall motion abnormalities
- Continue IV nitro drip and IV Lasix for preload reduction
- Started on low-dose hydralazine which will be titrated up as able for afterload reduction
- Beta-blockade with low-dose carvedilol 3.125 mg twice daily, titrate up as able
- Cardiology following, left heart cath in the next 48 hours once volume status optimized and to protect kidneys considering contrast dye with CTA and ED
- Loaded with Plavix, continue DAPT
- Daily p.o. PPI
- Abnormal lipids with triglycerides 454 and total cholesterol 310 (LDL 150, HDL 43)
JASON:
- Creatinine on initial labs 2.0
- No history of CKD, unknown baseline renal function
- Likely due to poor perfusion in the setting of NSTEMI with acute HFrEF
- Monitor for improvement in renal function with diuresis
- Received contrast for CTA, will have to monitor renal function closely with upcoming left heart cath
Type 1 diabetes mellitus:
- Continue long and short acting insulin with additional sliding scale as needed
- Diabetic diet
- Continue Accu-Cheks
- Hemoglobin A1c 9.1%
Hyperkalemia:
- Mild with potassium of 5.5, likely related to JASON
- Continue telemetry monitoring
DVT prophylaxis: IV heparin
CODE STATUS: Full code
Total time spent on today's encounter was 45 minutes
Anticipated Discharge: > 48 hours
Subjective/Interval History
-
Date of Service: June 01, 2025
Patient was seen and examined at bedside this morning. Currently comfortable, saturating in the mid 90s but on 5 L via nasal cannula. He is not on oxygen at home.
Objective Data
-
Labs:
Laboratory Results
06/01/25 06/01/25 06/01/25
03:32 11:14 13:42
WBC 10.2
Hgb 8.6 L
Hct 24.8 L
Plt Count 212
APTT 38.1 H 39.0 H
Sodium 134 L Cancelled
Potassium 5.5 H Cancelled
Chloride 106 Cancelled
Carbon Dioxide 23 Cancelled
BUN 52 H Cancelled
Creatinine 2.1 H Cancelled
Glucose 218 H Cancelled
Calcium 8.6 Cancelled
06/01/25
18:00
WBC
Hgb Pending
Hct Pending
Plt Count
APTT Pending
Sodium Pending
Potassium Pending
Chloride Pending
Carbon Dioxide Pending
BUN Pending
Creatinine Pending
Glucose Pending
Calcium Pending
Vital Signs:
Vital Signs
Temp Pulse Resp BP Pulse Ox
97.8 F 103 12 144/91 96
06/01/25 14:17 06/01/25 14:00 06/01/25 14:00 06/01/25 11:00 06/01/25 14:00
I&O
05/31/25 06/01/25 06/02/25
06:59 06:59 06:59
Intake Total 240 / 240
Output Total 2300 / 2300 1100 / 1100
Balance -2060 / -2060 -1100 / -1100
Review of Systems
-
History Source: Patient
All other systems: Reviewed and negative
Physical Exam
-
General: No Apparent Distress
[2025-06-01] MEDS: APRESOLINE 25 MG PO ×2 (15:59→21:50)
--- NOTE | 2025-06-01 16:11 | CM ---
Patient with Hx DM, R BKA, left foot diabetic ulcers with Dx NSTEMI, HF, JASON. Plan eventual heart cath. O2 6L. Receiving IV Lasix, Heparin gtt, Nitro gtt. Wound care nurse consult pending. Per nurse; activity requires assist of 2.
Met with patient who resides with his parents in a 2 story house with 1 step at entrance and first floor bedroom/bath.
The patient was independent in ADLs and ambulation, wearing his right leg prosthesis.
He states he was active and able to go out.
The patient was going to [facility] weekly and his mother does his wound care at home.
DME - right leg prosthesis, wound care supplies
No prior VN or SNF
Prior [facility]
PCP - Reema Ceron
Pharmacy - [facility]
CM continuing to follow for d/c needs.
Plan home.
[2025-06-01] MEDS: NOVOLOG FLEXPEN-LOW RESISTANCE 3 UNITS SC (17:14)
[2025-06-01] MEDS: LIPITOR 80 MG PO (17:17)
[2025-06-01 17:28] LABS: Glucose - Point of Care 276 mg/dl (70-99)
[2025-06-01 18:19] LABS: Hematocrit 26.8 % (39.0-52.0); Hemoglobin 9.1 g/dL (13.0-18.0)
[2025-06-01 18:30] LABS: APTT 42.6 Sec (23.4-35.0)
--- NOTE | 2025-06-01 18:31 | PTCARENOTE ---
PT mother here doing wound care
[2025-06-01 18:35] LABS: Blood Urea Nitrogen 52 mg/dl (9-20); Calcium 8.3 mg/dl (8.4-10.2); Carbon Dioxide 24 mmol/L (22-30); Chloride 104 mmol/L (98-107); Estimated Creatinine Clearance 50 ml/min; Glucose 242 mg/dl (70-99); Potassium 5.1 mmol/L (3.5-5.1); Sodium 134 mmol/L (135-145); eGFR 40.06
[2025-06-01 21:42] LABS: Glucose - Point of Care 248 mg/dl (70-99)
[2025-06-01] MEDS: LANTUS 0.15 UNITS SC (21:50)
[2025-06-02] VITALS (24 sets, daily range): BP systolic 100–141; BP diastolic 60–116; BMI 29.0
[2025-06-02 00:10] LABS: Glucose - Point of Care 222 mg/dl (70-99)
--- NOTE | 2025-06-02 00:57 | PTCARENOTE ---
Heparin gtt remains in place, see worklist for titrations. Nitro gtt remains in place at ordered rate. Pt denies complaints at this time. Call barnes within reach. Care ongoing.
[2025-06-02 01:14] LABS: APTT 55.2 Sec (23.4-35.0)
[2025-06-02] MEDS: HEPARIN 25000 UNITS/250 ML IV ×2 (01:59→16:20)
[2025-06-02 05:58] LABS: Hematocrit 24.8 % (39.0-52.0); Hemoglobin 8.2 g/dL (13.0-18.0); Mean Corp Hgb Conc. 33.1 g/dL (33.0-37.0); Mean Corpuscular Volume 90.8 fL (80.0-94.0); Platelet Count 190 10^3/uL (130-400); Red Cell Dist. Width 13.2 % (11.5-14.5)
[2025-06-02 06:10] LABS: Blood Urea Nitrogen 59 mg/dl (9-20); Calcium 8.2 mg/dl (8.4-10.2); Carbon Dioxide 26 mmol/L (22-30); Chloride 104 mmol/L (98-107); Estimated Creatinine Clearance 50 ml/min; Glucose 178 mg/dl (70-99); Potassium 4.7 mmol/L (3.5-5.1); Sodium 135 mmol/L (135-145); eGFR 40.06
--- NOTE | 2025-06-02 08:42 | W.PN.CARDCBS ---
Today's Communication / Plan
-
Wean nitro drip, start isosorbide dinitrate
IV diuresis monitor intake and output
Continue up titration GDMT this weekend with planned left heart catheterization 06/04/2025
Impression / Plan
-
PCP Dr. Dahl affiliated with [facility]
Cardiology: None, first seen by Dr Bruce Corral
Impression:
-NSTEMI with peak troponin of 9.48 : Presented with chest pain, SOB and hypoxia 05/31/25
-Acute on chronic combined systolic and diastolic heart failure
CM EF 15-20% by echo 05/31/25
-Anterior and anterolateral WMA on echo 05/31/25
-JASON on possible CKD
-Anemia: Rectal heme negative today
-Hyperkalemia
-Poorly controlled Type 1 diabetic since age 24
-Hyperglycemia
-PAD s/p right BKA
-Acute HFrEF, improving
Echo 04/26/24: [facility] study, EF 55-60%, no significant valve disease
Echo 05/31/25: EF 15-20%, inferior and basal segments move best
Labs 11/08/2024: Labs from PCP office, blood sugar 210, BUN 34, creatinine 1.23, sodium 135, potassium 5.0, AST 17, ALT 17
Plan:
-Will discuss timing of right and left heart catheterization with nephrology. Ideally would prefer 48-72 hours between contrast exposure, tentative plan is for 06/04/2025
-Continue IV Diuresis, monitor intake and output, daily weight
- Continue hydralazine and continue IV nitro given severe LV dysfunction given Cr. of 2.
Tolerating hydralazine 25mg po tid
Titrate hydralazine as tolerated for goal of 75mg tid
IV Nitro continue for now, wean and start isosorbide dinitrate and uptitrate to goal
As patient remains chest pain free...Isosorbide dinitrate 20mg tid is trial based data, will start at 5 mg 3 times daily
-Continue Coreg with slow titration maybe in 24 hours or so to 6.25 mg bid
-Continue high intensity statin
-Will load with Plavix given delay for cath and will start PPI if not already done; in discussion with Dr. Corral, plan to give Plavix and hold Wednesday's dose
-Will need to follow H/H
Discussed with patient, nursing
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
Subjective
Date of Service: June 02, 2025
Patient seen and examined this morning. No acute events overnight. Patient resting comfortably in bed. Patient denies any chest pain, shortness of breath, palpitations, or weakness.Roughly 2.1 L output over last 24 hours
Objective
Labs:
06/02/25 05:29
06/02/25:
Labs
Hgb 8.2 g/dL (13.0-18.0) L 06/02/25:
Hct 24.8 % (39.0-52.0) L 06/02/25 05:
Plt Count 190 10^3/uL (130-400) 06/02/25 05:
APTT 55.2 Sec (23.4-35.0) H 06/02/25 00:51
Sodium 135 mmol/L (135-145) 06/02/25:
Potassium 4.7 mmol/L (3.5-5.1) 06/02/25:
BUN 59 mg/dl (9-20) H 06/02/25:
Creatinine 2.1 mg/dL (0.7-1.3) H 06/02/25:
Glucose 178 mg/dl (70-99) H 06/02/25:
Troponins
05/31/25 05/31/25 05/31/25
13:26 15:30 17:00
Troponin I 2.110 H* 2.900 H* D Cancelled
05/31/25 05/31/25 05/31/25
17:00 17:20 20:24
Troponin I Cancelled 5.100 H* D 8.230 H* D
05/31/25 05/31/25 06/01/25
23:00 23:05 03:32
Troponin I Cancelled Cancelled 9.480 H*
06/01/25 06/01/25
11:14 22:30
Troponin I 6.910 H* D Cancelled
Vital Signs and I&O:
Vital Signs
Temp Pulse Resp BP Pulse Ox
98.7 F 99 13 127/80 96
06/02/25 02:15 06/02/25 06:00 06/02/25 05:00 06/02/25 06:00 06/02/25 06:00
Vital Signs
Temp Pulse Resp BP Pulse Ox
98.7 F 99 13 127/80 96
06/02/25 02:15 06/02/25 06:00 06/02/25 05:00 06/02/25 06:00 06/02/25 06:00
Intake & Output
05/31/25 06/01/25 06/02/25 06/03/25
06:59 06:59 06:59 06:59
Intake Total 240 / 240
Output Total 2300 / 2300 2099 / 2099
Balance -2059 / -2059 -2099 / -2099
Physical Exam
Physical Exam
GENERAL: no acute distress
EYE: sclera anicteric
NECK: Supple, no JVD, no carotid bruit appreciated
ENT: normal nose, moist mucosal membranes
CARDIAC: Regular rate and rhythm, +S1/S2, no murmur, rubs, or gallops
CHEST/PULMONARY: Normal effort, bibasilar crackles right greater than left
ABDOMEN: Soft, without focal tenderness or distention
NEUROLOGICAL: Alert and oriented x3
SKIN: Warm and dry; right BKA, left ulcer
PSYCH: Normal and appropriate interaction.
[2025-06-02 08:45] LABS: Glucose - Point of Care 205 mg/dl (70-99)
[2025-06-02 08:59] LABS: APTT 63.0 Sec (23.4-35.0)
[2025-06-02] MEDS: COREG 3.125 MG PO ×2 (09:06→20:04)
[2025-06-02] MEDS: PLAVIX 75 MG PO (09:06)
[2025-06-02] MEDS: LASIX 40 MG IV ×2 (09:07→16:23)
[2025-06-02] MEDS: PROTONIX 40 MG PO (09:07)
[2025-06-02] MEDS: LOW STRENGTH ASPIRIN 81 MG PO (09:07)
[2025-06-02] MEDS: APRESOLINE 25 MG PO ×3 (09:07→22:07)
[2025-06-02] MEDS: NOVOLOG FLEXPEN-LOW RESISTANCE 2 UNITS SC (10:18)
[2025-06-02] MEDS: NOVOLOG FLEXPEN 5 UNITS SC ×3 (10:19→17:35)
[2025-06-02] MEDS: NOVOLOG FLEXPEN-LOW RESISTANCE 3 UNITS SC (12:56)
[2025-06-02 13:04] LABS: Glucose - Point of Care 255 mg/dl (70-99)
--- NOTE | 2025-06-02 15:33 | W.PN.HOSP.TC ---
Today's Communication/Plan
-
Assessment / Plan
Assessment / Plan
General: No Apparent Distress, Comfortable and Conversant
HEENT: NormoCephalic, Moist mucous membranes, Atraumatic, nasal cannula in place
Respiratory: Clear and Non Labored Respirations
Cardiac: S1/S2 and Regular Rhythm; No Rub or Gallop
GI: Soft, Non Tender, Non Distended and Normal Bowel Sounds
Musculoskeletal: No Edema, right BKA, left foot wound with dressing CDI
Skin: Warm and dry
: NO Villafana
Neuro: Awake, Alert, Nonfocal/grossly intact
Psych: Calm and Intact Judgment/Insight
Mr. Leon is a 40-year-old male with a medical history of type 1 diabetes mellitus and PAD (status post BKA 2023) who presented with acute onset chest pain and shortness of breath. In the ED, he underwent CT angiography to evaluate which was
negative for pulmonary embolism but did show extensive bilateral pulmonary edema. Lab work revealed significantly elevated troponins. EKG did not show STEMI but did show nonspecific T wave abnormalities. Bedside echo showed severely reduced
ejection fraction with wall motion abnormalities. He was started on IV heparin drip and admitted for further evaluation and management.
NSTEMI, acute HFrEF:
- Continue IV heparin drip
- Echocardiogram shows LVEF 15 to 20% with regional wall motion abnormalities
- Transition IV nitro to Isordil
- Continue aggressive diuresis with Lasix 40 mg IV twice daily
- Afterload reduction with low-dose hydralazine for now, titrate as able
- Beta-blockade with low-dose carvedilol 3.125 mg twice daily, titrate up as able
- Cardiology following, left heart cath planned for Wednesday
- Loaded with Plavix, continue DAPT
- Daily p.o. PPI
- Abnormal lipids with triglycerides 454 and total cholesterol 310 (LDL 150, HDL 43)
Anemia:
- Initial hemoglobin at time of arrival was 10.3, has since been aggressively diuresed however hemoglobin level has gotten down, was 8.2 on labs this morning
- Unclear etiology, no overt evidence of bleeding, possibly due to chronic disease considering renal function
- Continuing PPI
- Would transfuse continued threshold greater than 8.0 considering NSTEMI
JASON:
- Creatinine on initial labs 2.0, remained stable at 2.1 today
- No history of CKD, unknown baseline renal function
- Likely multifactorial due to poor perfusion in the setting of NSTEMI with acute HFrEF, also uncontrolled diabetes
- Monitor for improvement in renal function with diuresis
- Received contrast for CTA, will have to monitor renal function closely with upcoming left heart cath
Type 1 diabetes mellitus:
- Continue long and short acting insulin with additional sliding scale as needed
- Diabetic diet
- Continue Accu-Cheks
- Hemoglobin A1c 9.1%
Hyperkalemia:
- Mild with potassium of 5.5 initially, likely related to JASON
- Now improved to 4.7
- Continue telemetry monitoring
DVT prophylaxis: IV heparin
CODE STATUS: Full code
Total time spent on today's encounter was 45 minutes
Anticipated Discharge: > 48 hours
Subjective/Interval History
-
Date of Service: June 02, 2025
Patient was seen and examined at bedside this morning. Currently comfortable. Monitoring hemoglobin level closely as it seems to be dropping despite aggressive diuresis. No evidence of active bleeding other than small amount of dried blood in
anterior nares due to nasal cannula. Patient denies dark-colored stools.
Objective Data
-
Labs:
Laboratory Results
06/02/25 06/02/25 06/02/25
05:29 08:19 15:13
WBC 9.6
Hgb 8.2 L
Hct 24.8 L
Plt Count 190
APTT 63.0 H Pending
Sodium 135
Potassium 4.7
Chloride 104
Carbon Dioxide 26
BUN 59 H
Creatinine 2.1 H
Glucose 178 H
Calcium 8.2 L
Vital Signs:
Vital Signs
Temp Pulse Resp BP Pulse Ox
98.2 F 100 19 130/84 93
06/02/25 11:27 06/02/25 13:00 06/02/25 13:00 06/02/25 13:00 06/02/25 15:08
I&O
06/01/25 06/02/25 06/03/25
06:59 06:59 06:59
Intake Total 240 / 240
Output Total 0 / 2300 2099 / 2099 450 / 450
Balance -2059 / -2059 -2099 / -2099 -450 / -450
Review of Systems
-
History Source: Patient
All other systems: Reviewed and negative
Physical Exam
-
General: No Apparent Distress
[2025-06-02 15:36] LABS: APTT 65.9 Sec (23.4-35.0)
[2025-06-02] MEDS: ISORDIL 5 MG PO ×2 (16:23→22:07)
[2025-06-02] MEDS: LIPITOR 80 MG PO (16:26)
--- NOTE | 2025-06-02 16:50 | W.PN.NEPH.PH ---
Today's Communication / Plan
-
con lasix and follow labs
Assessment/Plan
-
40-year-old male type I diabetic since his 20s status post BKA on the right presents with chest pain and shortness of breath with weakness onset about 3 days ago describes a pressure in his chest intermittent
Renal consultation was requested for creatinine of 2 and a potassium of 6.4
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
Patient was found to have DKA as well as NSTEMI.
Status post CTA rule out PE negative
Impression.
Acute kidney injury uncertain baseline.
Pneumonia versus CHF.
Leukocytosis.
NSTEMI.
Hyperkalemia
Type 1 diabetes
DKA
Plan
stable renal function cr 2.1
no baseline cr available but suspect there is CKD component
Urine protein creatinine ratio 1.7 likely diabetic etiology
Echocardiogram-ejection fraction 15 to 20%
renal US shows No increased echogenicity with large kidneys at 12 cm consistent with diabetic kidney
cont diuresis
noted plan of [facility] on 06/04
reviewed with pt about risk of LATESHA , no modifiable risk factors currenlty
hold diuretic son day of cath
-
-
Date of Service: June 02, 2025
CC / HPI / ROS
-
Chief Complaint:
Presents with chest discomfort
History of Present Illness:
Acute versus chronic kidney disease and hyperkalemia with echo cardiogram finding ejection fraction 15 to 20% with DKA
cr stable 2.1, k 7.4
hb low 8.2
wt is improving
bp stable
Review of Systems:.
No chest pain or shortness of breath
nonoliguric
Labs
-
Labs:
WBC 9.6 10^3/uL (4.8-10.8) 06/02/25 05:29
RBC 2.73 10^6/uL (4.70-6.10) L 06/02/25 05:29
Hgb 8.2 g/dL (13.0-18.0) L 06/02/25 05:29
Hct 24.8 % (39.0-52.0) L 06/02/25 05:29
Plt Count 190 10^3/uL (130-400) 06/02/25 05:29
Sodium 135 mmol/L (135-145) 06/02/25 05:29
Potassium 4.7 mmol/L (3.5-5.1) 06/02/25 05:
Chloride 104 mmol/L (98-107) 06/02/25 05:29
Carbon Dioxide 26 mmol/L (22-30) 06/02/25 05:29
BUN 59 mg/dl (9-20) H 06/02/25 05:29
Creatinine 2.1 mg/dL (0.7-1.3) H 06/02/25 05:29
eGFR 40.06 06/02/25 05:29
Glucose 178 mg/dl (70-99) H 06/02/25 05:29
Calcium 8.2 mg/dl (8.4-10.2) L 06/02/25 05:29
Dpn-B-Buaivavkzur Pept 7670 pg/ml 05/31/25 13:26
Albumin 3.9 g/dl (3.5-5.0) 05/31/25 13:26
Physical Exam
-
Vital Signs:
Vital Signs
Temp Pulse Resp BP Pulse Ox
98.2 F 100 19 127/75 93
06/02/25 11:27 06/02/25 13:00 06/02/25 13:00 06/02/25 16:23 06/02/25 15:08
Respiratory:: Bilateral: CTA
Lung Excursion:: Normal
Abdomen:: Nontender and Soft
Extremity Edema:: None: Bilateral:
Villafana Catheter: No
Other Findings::
Right BKA
[2025-06-02] MEDS: NOVOLOG FLEXPEN-LOW RESISTANCE 1 UNITS SC (17:35)
[2025-06-02 17:47] LABS: Glucose - Point of Care 188 mg/dl (70-99)
--- NOTE | 2025-06-02 20:52 | PTCARENOTE ---
Assumed care of pt. approx 0.
nitro gtt D/C from Day team. Heparin gtt x1 therapeutic.
Pt. offers no complaints of pain, mentating appropriately, hemodynamically stable.
[2025-06-02 21:50] LABS: Glucose - Point of Care 206 mg/dl (70-99)
[2025-06-02] MEDS: LANTUS 0.15 UNITS SC (22:08)
[2025-06-02 23:08] LABS: Hematocrit 22.7 % (39.0-52.0); Hemoglobin 7.9 g/dL (13.0-18.0)
[2025-06-02 23:14] LABS: APTT 71.0 Sec (23.4-35.0)
[2025-06-03] VITALS (28 sets, daily range): BP systolic 103–144; BP diastolic 64–101; BMI 29.2
[2025-06-03] MEDS: HEPARIN 25000 UNITS/250 ML IV ×2 (03:01→14:41)
[2025-06-03 03:47] LABS: Hematocrit 22.4 % (39.0-52.0); Hemoglobin 7.4 g/dL (13.0-18.0); Mean Corp Hgb Conc. 33.0 g/dL (33.0-37.0); Mean Corpuscular Volume 90.0 fL (80.0-94.0); Platelet Count 184 10^3/uL (130-400); Red Cell Dist. Width 12.8 % (11.5-14.5)
[2025-06-03 04:46] LABS: Blood Urea Nitrogen 57 mg/dl (9-20); Calcium 8.1 mg/dl (8.4-10.2); Carbon Dioxide 23 mmol/L (22-30); Chloride 105 mmol/L (98-107); Estimated Creatinine Clearance 48 ml/min; Glucose 137 mg/dl (70-99); Potassium 4.3 mmol/L (3.5-5.1); Sodium 133 mmol/L (135-145); eGFR 37.88
[2025-06-03 05:04] LABS: APTT 115.6 Sec (23.4-35.0)
[2025-06-03] MEDS: APRESOLINE 50 MG PO ×3 (09:00→22:09)
[2025-06-03] MEDS: PLAVIX 75 MG PO (09:00)
[2025-06-03] MEDS: COREG 3.125 MG PO ×2 (09:00→19:51)
[2025-06-03] MEDS: LOW STRENGTH ASPIRIN 81 MG PO (09:00)
[2025-06-03] MEDS: PROTONIX 40 MG PO (09:01)
[2025-06-03] MEDS: LASIX 40 MG IV (09:01)
[2025-06-03] MEDS: ISORDIL 5 MG PO ×3 (09:01→22:09)
[2025-06-03 09:09] LABS: Glucose - Point of Care 146 mg/dl (70-99)
[2025-06-03] MEDS: NOVOLOG FLEXPEN 5 UNITS SC ×3 (09:10→17:10)
[2025-06-03] MEDS: NOVOLOG FLEXPEN-LOW RESISTANCE SC (09:10)
--- NOTE | 2025-06-03 10:55 | W.PN.CARDCBS ---
Today's Communication / Plan
-
Defer heart cath while assessing anemia
Continue goal-directed therapy, up titration as tolerated
Given ischemic disease, remains on aspirin/Plavix/heparin and again continue to monitor closely
Monitor renal function
Impression / Plan
-
PCP Dr. Dahl affiliated with [facility]
Cardiology: None, first seen by Dr Bruce Corral
Impression:
-NSTEMI with peak troponin of 9.48 : Presented with chest pain, SOB and hypoxia 05/31/25
-Acute on chronic combined systolic and diastolic heart failure
CM EF 15-20% by echo 05/31/25
-Anterior and anterolateral WMA on echo 05/31/25
-JASON on possible CKD
-Anemia: Rectal heme negative 06/01/2025; heme stool pending, hemoglobin continues to downtrend
-Hyperkalemia
-Poorly controlled Type 1 diabetic since age 24
-Hyperglycemia
-PAD s/p right BKA
-Acute HFrEF, improving
Echo 04/26/24: [facility] study, EF 55-60%, no significant valve disease
Echo 05/31/25: EF 15-20%, inferior and basal segments move best
Labs 11/08/2024: Labs from PCP office, blood sugar 210, BUN 34, creatinine 1.23, sodium 135, potassium 5.0, AST 17, ALT 17
Plan:
-Will discuss timing of right and left heart catheterization with nephrology, hospitalist. Renal function remained stable however patient's hemoglobin downtrending without clear source at this time. Heme stool still pending we will hold off on
left heart catheterization at this time. Patient still to require ischemic evaluation
� Continue heparin, aspirin/Plavix and monitor given NSTEMI with cardiomyopathy
-Continue IV Diuresis, monitor intake and output, daily weight
- Continue hydralazine and continue IV nitro given severe LV dysfunction given Cr. of 2.
Tolerating hydralazine 25mg po tid, increased to 50 3 times daily 06/03/2025
Titrate hydralazine as tolerated for goal of 75mg tid
IV Nitro continue for now, wean and start isosorbide dinitrate and uptitrate to goal
As patient remains chest pain free...Isosorbide dinitrate 20mg tid is trial based data, will start at 5 mg 3 times daily
-Continue Coreg with slow titration maybe in 24 hours or so to 6.25 mg bid
-Continue high intensity statin
-Will need to follow H/H
Discussed with patient, nursing, hospitalist, interventionalist
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
Subjective
Date of Service: June 03, 2025
Patient seen and examined. No acute events overnight. Patient resting comfortably in bed. Patient denies chest pain, shortness of breath, palpitations, or weakness. No reported overt bleeding episodes. No reported black or red stools
Objective
Labs:
06/03/25 03:27
06/03/25 03:27
Labs
Hgb 7.4 g/dL (13.0-18.0) L 06/03/25 03:
Hct 22.4 % (39.0-52.0) L 06/03/25 03:27
Plt Count 184 10^3/uL (130-400) 06/03/25 03:27
APTT 115.6 Sec (23.4-35.0) H 06/03/25 04:31
Sodium 133 mmol/L (135-145) L 06/03/25 03:27
Potassium 4.3 mmol/L (3.5-5.1) 06/03/25 03:27
BUN 57 mg/dl (9-20) H 06/03/25 03:27
Creatinine 2.2 mg/dL (0.7-1.3) H 06/03/25 03:27
Glucose 137 mg/dl (70-99) H 06/03/25 03:27
Troponins
05/31/25 05/31/25 05/31/25
13:26 15:30 17:00
Troponin I 2.110 H* 2.900 H* D Cancelled
05/31/25 05/31/25 05/31/25
17:00 17:20 20:24
Troponin I Cancelled 5.100 H* D 8.230 H* D
05/31/25 05/31/25 06/01/25
23:00 23:05 03:32
Troponin I Cancelled Cancelled 9.480 H*
06/01/25 06/01/25
11:14 22:30
Troponin I 6.910 H* D Cancelled
Vital Signs and I&O:
Vital Signs
Temp Pulse Resp BP Pulse Ox
98.8 F 92 14 140/75 84
06/03/25 07:35 06/03/25 05:00 06/03/25 05:00 06/03/25 09:01 06/03/25 05:00
Vital Signs
Temp Pulse Resp BP Pulse Ox
98.8 F 92 14 140/75 84
06/03/25 07:35 06/03/25 05:00 06/03/25 05:00 06/03/25 09:01 06/03/25 05:00
Intake & Output
06/01/25 06/02/25 06/03/25 06/04/25
06:59 06:59 06:59 06:59
Intake Total 240 / 240 516 / 516
Output Total 230 / 0 2099 / 2099 1750 / 1750 350 / 350
Balance -2059 / -2059 -2099 / -2100 -1234 / -1234 -350 / -350
Physical Exam
Physical Exam
GENERAL: no acute distress
EYE: sclera anicteric
NECK: Supple, no JVD, no carotid bruit appreciated
ENT: normal nose, moist mucosal membranes
CARDIAC: Regular rate and rhythm, +S1/S2, no murmur, rubs, or gallops
CHEST/PULMONARY: Normal effort, bibasilar crackles right greater than left
ABDOMEN: Soft, without focal tenderness or distention
NEUROLOGICAL: Alert and oriented x3
SKIN: Warm and dry; right BKA, left ulcer
PSYCH: Normal and appropriate interaction.
Telemetry shows sinus rhythm
[2025-06-03 11:21] LABS: APTT 95.8 Sec (23.4-35.0)
--- NOTE | 2025-06-03 11:37 | W.PN.NEPH.PH ---
Today's Communication / Plan
-
follow labs
Assessment/Plan
-
40-year-old male type I diabetic since his 20s status post BKA on the right presents with chest pain and shortness of breath with weakness onset about 3 days ago describes a pressure in his chest intermittent
Renal consultation was requested for creatinine of 2 and a potassium of 6.4
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
Patient was found to have DKA as well as NSTEMI.
Status post CTA rule out PE negative
Impression.
Acute kidney injury uncertain baseline.
Pneumonia versus CHF.
Leukocytosis.
NSTEMI.
Hyperkalemia
Type 1 diabetes
DKA
Plan
stable renal function cr 2.2
no baseline cr available but suspect there is CKD component
Urine protein creatinine ratio 1.7 likely diabetic etiology
Echocardiogram-ejection fraction 15 to 20%
renal US shows No increased echogenicity with large kidneys at 12 cm consistent with diabetic kidney
cont diuresis
noted plan of [facility] on 06/04
reviewed with pt about risk of LATESHA 26%, dialysis risk 1% based on aren score
no modifiable risk factors currently,
hold diuretic son day of cath
-
-
Date of Service: June 03, 2025
CC / HPI / ROS
-
Chief Complaint:
Presents with chest discomfort
History of Present Illness:
Acute versus chronic kidney disease and hyperkalemia with echo cardiogram finding ejection fraction 15 to 20% with DKA
cr stable 2.2, k 4.3
hb low 7.4
wt is up today
bp stable
Review of Systems:.
No chest pain or shortness of breath
nonoliguric
Labs
-
Labs:
WBC 7.5 10^3/uL (4.8-10.8) 06/03/25 03:27
RBC 2.49 10^6/uL (4.70-6.10) L 06/03/25 03:27
Hgb 7.4 g/dL (13.0-18.0) L 06/03/25 03:27
Hct 22.4 % (39.0-52.0) L 06/03/25 03:27
Plt Count 184 10^3/uL (130-400) 06/03/25 03:27
Sodium 133 mmol/L (135-145) L 06/03/25 03:27
Potassium 4.3 mmol/L (3.5-5.1) 06/03/25 03:27
Chloride 105 mmol/L (98-107) 06/03/25 03:27
Carbon Dioxide 23 mmol/L (22-30) 06/03/25 03:27
BUN 57 mg/dl (9-20) H 06/03/25 03:27
Creatinine 2.2 mg/dL (0.7-1.3) H 06/03/25 03:27
eGFR 37.88 06/03/25 03:27
Glucose 137 mg/dl (70-99) H 06/03/25 03:27
Calcium 8.1 mg/dl (8.4-10.2) L 06/03/25 03:27
Oxg-G-Xcrrzikxfyb Pept 7670 pg/ml 05/31/25 13:26
Albumin 3.9 g/dl (3.5-5.0) 05/31/25 13:26
Physical Exam
-
Vital Signs:
Vital Signs
Temp Pulse Resp BP Pulse Ox
98.8 F 92 14 140/75 84
06/03/25 07:35 06/03/25 05:00 06/03/25 05:00 06/03/25 09:01 06/03/25 05:00
Cardiovascular:: Regular rate and rhythm
Respiratory:: Bilateral: CTA
Lung Excursion:: Normal
Abdomen:: Nontender and Soft
Extremity Edema:: +1: Bilateral:
Villafana Catheter: No
Other Findings::
Right BKA
[2025-06-03 11:59] LABS: Glucose - Point of Care 184 mg/dl (70-99)
[2025-06-03] MEDS: NOVOLOG FLEXPEN-LOW RESISTANCE 1 UNITS SC (13:35)
--- NOTE | 2025-06-03 15:05 | W.PN.HOSP.TC ---
Today's Communication/Plan
-
Assessment / Plan
Assessment / Plan
General: No Apparent Distress, Comfortable and Conversant
HEENT: NormoCephalic, Moist mucous membranes, Atraumatic, nasal cannula in place
Respiratory: Clear and Non Labored Respirations
Cardiac: S1/S2 and Regular Rhythm; No Rub or Gallop
GI: Soft, Non Tender, Non Distended and Normal Bowel Sounds
Musculoskeletal: right BKA, left foot wound with dressing CDI
Skin: Warm and dry
: NO Villafana
Neuro: Awake, Alert, Nonfocal/grossly intact
Psych: Calm and Intact Judgment/Insight
Mr. Leon is a 40-year-old male with a medical history of type 1 diabetes mellitus and PAD (status post BKA 2023) who presented with acute onset chest pain and shortness of breath. In the ED, he underwent CT angiography to evaluate which was
negative for pulmonary embolism but did show extensive bilateral pulmonary edema. Lab work revealed significantly elevated troponins. EKG did not show STEMI but did show nonspecific T wave abnormalities. Bedside echo showed severely reduced
ejection fraction with wall motion abnormalities. He was started on IV heparin drip and admitted for further evaluation and management.
NSTEMI, acute HFrEF:
- Continue IV heparin drip
- Echocardiogram shows LVEF 15 to 20% with regional wall motion abnormalities
- Transitioned to Isordil, nitroglycerin drip discontinued
- Continue aggressive diuresis with Lasix 40 mg IV twice daily
- Hydralazine increased to 50 mg 3 times a day
- Beta-blockade with low-dose carvedilol 3.125 mg twice daily, titrate up as able
- Cardiology following, left and right heart cath tentatively planned for sometime early this week pending stability of hemoglobin
- Loaded with Plavix, continue DAPT
- Daily p.o. PPI
- Abnormal lipids with triglycerides 454 and total cholesterol 310 (LDL 150, HDL 43)
Anemia:
- Initial hemoglobin at time of arrival was 10.3, has been trending slowly down despite presumed hemoconcentration with aggressive diuresis, hemoglobin was 7.4 on labs this morning
- Unclear etiology, no overt evidence of bleeding, checking stool for occult blood, likely contributed to by suspected CKD
- Transfusing 1 unit PRBCs today 06/03
- Continuing PPI
- Would transfuse to maintain threshold greater than 8.0 considering NSTEMI
- Will check labs for hemolysis although doubt this is the issue
- If Hemoccult positive or high suspicion for GI losses will ask for GI involvement, otherwise will likely need to involve hematology
JASON:
- Creatinine on initial labs 2.0, remained stable at 2.2 today
- No reported history of CKD, unknown baseline renal function
- Likely multifactorial due to poor perfusion in the setting of NSTEMI with acute HFrEF, also uncontrolled diabetes
- Monitor for improvement in renal function with diuresis
- Received contrast for CTA, will have to monitor renal function closely with upcoming left heart cath
Type 1 diabetes mellitus:
- Continue long and short acting insulin, currently at this 15 units at night add NovoLog 5 units with meals
- Additional sliding scale as needed
- Diabetic diet
- Continue Accu-Cheks
- Hemoglobin A1c 9.1%
Hyperkalemia:
- Mild with potassium of 5.5 initially, likely related to JASON
- Now improved to 4.3
- Continue telemetry monitoring
DVT prophylaxis: IV heparin
CODE STATUS: Full code
Total time spent on today's encounter was 40 minutes
Anticipated Discharge: > 48 hours
Subjective/Interval History
-
Date of Service: June 03, 2025
Patient was seen and examined at bedside this morning. Feeling well but hemoglobin continues to drop despite suspect hemoconcentration with risk of diuresis. Transfusing 1 unit PRBCs. Checking stool for occult blood.
Objective Data
-
Labs:
Laboratory Results
06/03/25 06/03/25 06/03/25
03:27 04:31 10:57
WBC 7.5
Hgb 7.4 L
Hct 22.4 L
Plt Count 184
APTT 115.6 H 95.8 H
Sodium 133 L
Potassium 4.3
Chloride 105
Carbon Dioxide 23
BUN 57 H
Creatinine 2.2 H
Glucose 137 H
Calcium 8.1 L
Vital Signs:
Vital Signs
Temp Pulse Resp BP Pulse Ox
98.4 F 95 17 135/85 94
06/03/25 14:38 06/03/25 14:38 06/03/25 14:38 06/03/25 14:38 06/03/25 14:18
I&O
06/02/25 06/03/25 06/04/25
06:59 06:59 06:59
Intake Total 516 / 516 0 / 0
Output Total 2099 / 2099 1750 / 1750 1250 / 1250
Balance -2100 / -2100 -1234 / -1234 -1250 / -1250
Review of Systems
-
History Source: Patient
All other systems: Reviewed and negative
Physical Exam
-
General: No Apparent Distress
[2025-06-03] MEDS: NOVOLOG FLEXPEN-LOW RESISTANCE 2 UNITS SC (17:10)
[2025-06-03] MEDS: LIPITOR 80 MG PO (17:15)
[2025-06-03 17:21] LABS: Glucose - Point of Care 205 mg/dl (70-99)
[2025-06-03 20:11] LABS: Hematocrit 25.2 % (39.0-52.0); Hemoglobin 9.0 g/dL (13.0-18.0)
[2025-06-03 21:09] LABS: ALT (SGPT) 13 U/L (0-50); AST (SGOT) 26 U/L (17-59); Albumin 3.4 g/dl (3.5-5.0); Alkaline Phosphatase 94 U/L (38-126); Total Protein 6.0 g/dl (6.3-8.2)
[2025-06-03] MEDS: LANTUS 0.15 UNITS SC (22:09)
[2025-06-03 22:21] LABS: Glucose - Point of Care 159 mg/dl (70-99)
[2025-06-04] VITALS (35 sets, daily range): BP systolic 89–164; BP diastolic 63–133; BMI 28.9
[2025-06-04] MEDS: HEPARIN 25000 UNITS/250 ML IV ×3 (03:04→20:13)
[2025-06-04 05:10] LABS: Hematocrit 24.4 % (39.0-52.0); Hemoglobin 8.6 g/dL (13.0-18.0); Mean Corp Hgb Conc. 35.2 g/dL (33.0-37.0); Mean Corpuscular Volume 86.8 fL (80.0-94.0); Platelet Count 203 10^3/uL (130-400); Red Cell Dist. Width 13.1 % (11.5-14.5)
[2025-06-04 05:14] LABS: APTT 78.8 Sec (23.4-35.0)
[2025-06-04 05:58] LABS: Blood Urea Nitrogen 47 mg/dl (9-20); Calcium 7.9 mg/dl (8.4-10.2); Carbon Dioxide 24 mmol/L (22-30); Chloride 105 mmol/L (98-107); Estimated Creatinine Clearance 58 ml/min; Glucose 129 mg/dl (70-99); LDH 273 U/L (120-246); Potassium 4.1 mmol/L (3.5-5.1); Sodium 134 mmol/L (135-145); eGFR 48.20
[2025-06-04 06:24] LABS: Glucose - Point of Care 146 mg/dl (70-99)
--- NOTE | 2025-06-04 06:24 | PTCARENOTE ---
Pt continues on heparin gtt, see worklist for titrations. Denies complaints at this time. Call barnes within reach.
--- NOTE | 2025-06-04 07:25 | PTCARENOTE ---
On walking rounds Pt is AAOx3 heparin gtt ay 21 ml/hr . Pthas nose bleed which he states he has had on and off all weekend. O2 is off POX 96%
[2025-06-04] MEDS: PLAVIX 75 MG PO (07:58)
[2025-06-04] MEDS: APRESOLINE 50 MG PO ×2 (07:58→15:33)
[2025-06-04] MEDS: ISORDIL 5 MG PO ×3 (07:58→22:40)
[2025-06-04] MEDS: PROTONIX 40 MG PO (07:59)
[2025-06-04] MEDS: COREG 3.125 MG PO (07:59)
[2025-06-04] MEDS: LOW STRENGTH ASPIRIN 81 MG PO (07:59)
[2025-06-04] MEDS: NOVOLOG FLEXPEN-LOW RESISTANCE SC (08:01)
--- NOTE | 2025-06-04 08:04 | PN.DE.MGMTRT ---
Insulin Management
- -
06/04/2025 Diabetes Management Consult Follow up
Patient admitted 05/31 with CP SOB - NSTEMI. H RBKA, type 1 diabetes since age 24. Prior to admission was taking lispro 6 units AC with lantus 14 units @ HS. A1C on admission 9.1%, cr 2.1, eGFR 40.06.
Patient is awake alert and oriented able to discuss diabetes care. States he sees his primary doctor for ongoing diabetes care. Has glucose monitor with adequate supplies.
Glucose on admission 474. Received 10 units lantus @ hs, fasting glucose 218.
Glucose range yesterday 146 to 205. Fasting glucose today 146. Patient is NPO this AM. Will continue hs lantus 15 units and AC novolog 5 units with low corrective. Patient for cardiac cath.
Discussed with nurse.
Will Follow
Diabetes History
- -
Type of Diabetes: 1
Pre-Admission Diabetes Regimen
06/04/25
04:47
Creatinine 1.8 H
Lab Results
Hemoglobin A1c 9.1 % (4.0-5.6) H 05/31/25 17:20
Insulin Pump Settings
IP Diabetes Regimen
06/03/25 06/03/25 06/03/25
08:58 11:48 17:09
Glucose
POC Glucose 146 H 184 H 205 H
06/03/25 06/04/25 06/04/25
22:10 04:47 06:13
Glucose 129 H
POC Glucose 159 H 146 H
Patient Education
[2025-06-04 10:07] LABS: Iron 64 ug/dl (49-181)
--- NOTE | 2025-06-04 10:09 | WOUNDNOTE ---
[facility] RN note: Patient admitted with NSTEMI, hyperglycemia, hyperkalemia. Patient's mother does his wound care and he follows [facility] wound care [place] for his L foot and toe wounds.
See H&P for complete history.
PMH: DM, PAD, R BKA.
Wound Location and type/assessment: Patient admitted with: L lateral foot full thickness diabetic ulcers pink to subcutaneous layer or muscle layer. No bone probed. Pedal pulse heard via portable Doppler. Patient for cardiac catheter tomorrow.
Patient stated his mother is doing his wound care during his hospital stay.
Appetite: currently NPO.
Pressure redistribution devices in place: Centrella Max air bed. Patient turns self in bed. His mother is bringing in his prosthesis for R side and brace for LLE.
Plan: L foot and 5th toe dressing changed using patient's supplies in room. L heel off bed with air chair cushion. Instructed pressure injury prevention measures.
Will confirm orders with Dr. Landrum and discussed with nurse Contreras.
Care plan to be updated. Will sign off. Call if needed. Patient to follow up at [facility] wound care [place].
--- NOTE | 2025-06-04 10:10 | WOUNDNOTE ---
[facility] RN note: Patient admitted with NSTEMI, hyperglycemia, hyperkalemia. Patient's mother does his wound care and he follows [facility] wound care [place] for his L foot and toe wounds.
See H&P for complete history.
PMH: DM, PAD, R BKA.
Wound Location and type/assessment: Patient admitted with: L lateral foot full thickness diabetic ulcers pink to subcutaneous layer or muscle layer. No bone probed. L lateral 5th toe scabbed vs dry mars necrotic ulcer. No surrounding erythema. L
pedal pulse heard via portable Doppler. Patient for cardiac catheter possibly tomorrow. Patient stated his mother is doing his wound care during his hospital stay and current wound care is on L lateral foot: soak with Dakin's moistened cloth x 10
minutes, Aquacell Ag, gauze and zachery daily and Aquacell ag and Bandaid daily to L 5th toe.
Appetite: currently NPO.
Pressure redistribution devices in place: Centrella Max air bed. Patient turns self in bed. His mother is bringing in his prosthesis for R side and brace for LLE. Patient has his wheelchair with his gel/foam chair cushion.
Plan: L foot and 5th toe dressing changed using patient's supplies in room. L heel off bed with air chair cushion. Instructed pressure injury prevention measures.
Will confirm orders with Dr. Landrum and discussed with nurse Contreras.
Care plan to be updated. Will sign off. Call if needed. Patient to [facility] at [facility].
[2025-06-04 10:16] LABS: Total Iron Binding Capacity 225 ug/dl (261-462)
--- NOTE | 2025-06-04 10:20 | WOUNDNOTE ---
L 5TH TOE
[2025-06-04] MEDS: NOVOLOG FLEXPEN SC (10:21)
--- NOTE | 2025-06-04 10:21 | WOUNDNOTE ---
L 5TH TOE
[2025-06-04 10:33] LABS: Ferritin 416.0 ng/ml (17.9-464.0)
--- NOTE | 2025-06-04 11:35 | W.PN.HOSP.TC ---
Today's Communication/Plan
-
Follow H&H.
Check reticulocyte count and iron studies
Obtain old lab work from PCPs office
Continue with IV heparin and DAPT per cardiology
Assessment / Plan
Assessment / Plan
Mr. Leon is a 40-year-old male with a medical history of type 1 diabetes mellitus and PAD (status post BKA 2023) who presented with acute onset chest pain and shortness of breath. In the ED, he underwent CT angiography to evaluate which was
negative for pulmonary embolism but did show extensive bilateral pulmonary edema. Lab work revealed significantly elevated troponins. EKG did not show STEMI but did show nonspecific T wave abnormalities. Bedside echo showed severely reduced
ejection fraction with wall motion abnormalities. He was started on IV heparin drip and admitted for further evaluation and management.
NSTEMI
acute HFrEF:
Symptomatically improved.
- Continue IV heparin drip
- Echocardiogram shows LVEF 15 to 20% with regional wall motion abnormalities
- Transitioned to Isordil, nitroglycerin drip was discontinued
- Continue aggressive diuresis with Lasix 40 mg IV twice daily
- Hydralazine increased to 50 mg 3 times a day
- Beta-blockade with low-dose carvedilol 3.125 mg twice daily, titrate up as able
- Cardiology following, left and right heart cath tentatively planned for sometime early this week pending stability of hemoglobin
- Loaded with Plavix, continue DAPT
- Daily p.o. PPI
- Abnormal lipids with triglycerides 454 and total cholesterol 310 (LDL 150, HDL 43)
Anemia:
- Initial hemoglobin at time of arrival was 10.3, has been trending slowly down despite presumed hemoconcentration with aggressive diuresis, hemoglobin was 7.4 on labs this morning
- Unclear etiology, no overt evidence of bleeding, checking stool for occult blood, likely contributed to by suspected CKD
- Transfused 1 unit PRBCs 06/03
- Continuing PPI
- Would transfuse to maintain threshold greater than 8.0 considering NSTEMI
- Will check labs for hemolysis although doubt this is the issue -haptoglobin pending, LDH mildly elevated. Check reticulocyte count
- He had apparently heme-negative per cardiology. Is normocytic.
- Seems to have prior history of anemia requiring transfusion during his amputation. Obtain old information. Check iron studies. May sounds this is more anemia of chronic disease. Heme test stools. Iron studies suggest anemia of chronic disease
consult hematology.
JASON:
- Creatinine on initial labs 2.0-improving to 1.8 today
- No reported history of CKD, unknown baseline renal function
- Likely multifactorial due to poor perfusion in the setting of NSTEMI with acute HFrEF, also uncontrolled diabetes
- Monitor for improvement in renal function with diuresis
- Received contrast for CTA, will have to monitor renal function closely with upcoming left heart cath
Type 1 diabetes mellitus:
- Continue long and short acting insulin, currently at this 15 units at night add NovoLog 5 units with meals
- Additional sliding scale as needed
- Diabetic diet
- Continue Accu-Cheks
- Hemoglobin A1c 9.1%
Hyperkalemia:
- Mild with potassium of 5.5 initially, likely related to JASON
- Now improved
- Continue telemetry monitoring
DVT prophylaxis: IV heparin
CODE STATUS: Full code
Discussed with cardiology
Discussed with RN
Total time spent on today's encounter was 52 minutes which included time spent in counseling the patient/family regarding diagnosis and treatment plan as listed above, goals of care, and symptom management. Case was discussed with nursing staff,
specialists, and care coordinators/case management. All labs and imaging personally reviewed by me. Remainder the time spent in detailed review of previous records, lab data, imaging, and other medical provider documentation.
Anticipated Discharge: > 48 hours
Subjective/Interval History
-
Date of Service: June 04, 2025
Resolved chest pressure which she had. Currently voicing no specific complaints.
Denies any chest pain, shortness of breath, cough, palpitations.
Tolerating diet without nausea or vomiting.
Does not remember if anemia was mentioned but when he had right knee amputation he needed blood transfusion support. He sees PCP and he thinks last visit was like 2 months ago and is not sure whether he had any blood checks and then. Denies any
prior history of GI bleed.
Objective Data
-
Labs:
Laboratory Results
06/04/25
04:47
WBC 8.2
Hgb 8.6 L
Hct 24.4 L
Plt Count 203
APTT 78.8 H
Sodium 134 L
Potassium 4.1
Chloride 105
Carbon Dioxide 24
BUN 47 H
Creatinine 1.8 H
Glucose 129 H
Calcium 7.9 L
Vital Signs:
Vital Signs
Temp Pulse Resp BP Pulse Ox
98.2 F 93 16 146/133 94
06/04/25 07:08 06/04/25 07:58 06/04/25 02:00 06/04/25 07:58 06/04/25 09:40
I&O
06/03/25 06/04/25 06/05/25
06:59 06:59 06:59
Intake Total 516 / 516 1210 / 1210
Output Total 1750 / 1750 2300 / 2300
Balance -1234 / -1234 -1090 / -1090
Physical Exam
-
General: Comfortable
Respiratory: Clear to Auscultation and Non Labored Respirations; Negative Accessory Resp Muscle Use
Cardiac: Regular Rhythm and S1/S2
GI: Soft, Nontender and No Hepatosplenomegaly
Musculoskeletal: Edema, Right Lower Extrem (1+) and Other
Neuro: AO x 3
Psych: Calm; Negative Confused
Data Reviewed
-
Labs: Labs Reviewed by me
[2025-06-04 12:09] LABS: Reticulocyte Count 2.8 % (0.4-2.8)
[2025-06-04 12:16] LABS: Iron 67 ug/dl (49-181)
--- NOTE | 2025-06-04 12:20 | W.PN.CARDCBS ---
Addendum entered and electronically signed by Elton Bledsoe MD 06/04/25 12:41:
I saw and examined the patient.
The MOLD STAMPER or PA's note was reviewed and I agree with the note.
Comment: General: Well developed, well nourished in NAD.
Neck: Supple, no JVD, HJR, carotids +2 B/L, no bruits bilaterally.
Heart: Non displaced PMI, RRR, no murmurs, No S3, S4, no rubs.
Lungs: Scattered rhonchi
Abdomen: Normal bowel sounds, soft, non-tender, non-distended.
Extremities: No clubbing, cyanosis or edema bilaterally.
Neuro: Grossly nonfocal, awake, alert and oriented x3.
Discussed with interventional cardiology, primary service. Appears to be euvolemic at present and oxygenating well on room air. Will do cardiac catheterization to evaluate severe cardiomyopathy when anemia is stable and has had workup. Continue
Isordil and Coreg. Total visit time 51 minutes occluding one half of the time spent explaining diagnosis, prognosis, and treatment options and interacting with consultants and primary service.
Original Note:
Today's Communication / Plan
-
f/u H&H pending
Remain on aspirin, Plavix and Heparin gtt
Eventual ischemic evaluation
Weight is down 7 lbs with IV diuresis
Increase Coreg to 6.25 mg BID
Impression / Plan
-
PCP Dr. Dahl affiliated with [facility]
Cardiology: None, first seen by Dr Bruce Corral
Impression:
NSTEMI with peak troponin of 9.48 : Presented with chest pain, SOB and hypoxia 05/31/25
Acute on chronic combined systolic and diastolic heart failure
CM EF 15-20% by echo 05/31/25
Anterior and anterolateral WMA on echo 05/31/25
JASON on possible CKD
Anemia
Rectal heme negative 06/01/2025; heme stool pending, hemoglobin continues to downtrend
Hyperkalemia
Poorly controlled Type 1 diabetic since age 24
Hyperglycemia
PAD s/p right BKA
Acute HFrEF, improving
Echo 04/26/24: AMH study, EF 55-60%, no significant valve disease
Echo 05/31/25: EF 15-20%, inferior and basal segments move best
Labs 11/08/2024: Labs from PCP office, blood sugar 210, BUN 34, creatinine 1.23, sodium 135, potassium 5.0, AST 17, ALT 17
Plan:
-Hgb 8.6 on 06/04/2025 AM on labs reviewed by me. Hgb was as low as 7.4 on 06/03/2025 and patient was given 1 unit PRBCs on 06/03/2025. Hospitalist following and suspect anemia of chronic disease. Heme test of stools has been ordered. Cardiology
performed GIORGIO 06/04/2025 that was negative for occult blood, but in the interim patient has had epistaxis so presumably he could be positive from that.
-Aspirin 81 mg daily has been continued since admission
-New to Plavix 75 mg daily following load on 06/01/2025
-Heparin gtt running on 06/04/2025
-No recurrence of chest pain, chest pain had started the night prior to admission and troponin peaked at 9.48, suspect this was a late presentation
-ICM with EF 15 to 20% by echo 05/31/2025 including anterior and anterolateral WMA.
-Patient needs eventual cardiac cath pending stability of his H&H
-New to Coreg 3.125 mg BID this admission, will increase to Coreg 6.25 mg BID 06/04/25, orders placed by me
-New to Isordil 5 mg TID this admission
-New to hydralazine 50 mg TID this admission
-Weight is down 7 lbs this admission with Lasix 40 mg IV BID diuresis. Patient was not taking a diuretic prior to admission
-Cre as high as 2.2 on 06/03/2025, but improved to 1.8 on 06/04/2025, all labs reviewed by me. Patient with likely underlying CKD and Cre was 1.23 on outpatient labs 11/2024 from his PCP.
-Hyperkalemia was managed with glucose and insulin on admission.
-Direct LDL 150 on 06/01/2025 and patient is new to atorvastatin 80 mg daily
-Patient was diagnosed with type 1 diabetes at age 24 after passing out at a libertarian with friends, but not waking up. Patient's father feels that patient does not check blood sugars regularly, he does not use a Dexcom and instead uses fingerstick
glucose monitoring at home and father says he does not check often. Patient reports his last HgbA1c was 7%, but HgbA1c this admission was 9.1%. Patient's father also reports that he does not often see patient giving himself insulin injections and
questions how often that is happening.
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
Subjective
Date of Service: June 04, 2025
He had a nosebleed earlier
Objective
Labs:
06/04/25 04:47
Labs
Hgb 8.6 g/dL (13.0-18.0) L 06/04/25 04:47
Hct 24.4 % (39.0-52.0) L 06/04/25 04:47
Plt Count 203 10^3/uL (130-400) 06/04/25 04:47
APTT 78.8 Sec (23.4-35.0) H 06/04/25 04:47
Sodium 134 mmol/L (135-145) L 06/04/25 04:47
Potassium 4.1 mmol/L (3.5-5.1) 06/04/25 04:47
BUN 47 mg/dl (9-20) H 06/04/25 04:47
Creatinine 1.8 mg/dL (0.7-1.3) H 06/04/25 04:47
Glucose 129 mg/dl (70-99) H 06/04/25 04:47
Vital Signs and I&O:
Vital Signs
Temp Pulse Resp BP Pulse Ox
98.2 F 92 9 128/86 93
06/04/25 07:08 06/04/25 11:23 06/04/25 11:23 06/04/25 11:23 06/04/25 11:23
Vital Signs
Temp Pulse Resp BP Pulse Ox
98.2 F 92 9 128/86 93
06/04/25 07:08 06/04/25 11:23 06/04/25 11:23 06/04/25 11:23 06/04/25 11:23
Intake & Output
06/02/25 06/03/25 06/04/25 06/05/25
06:59 06:59 06:59 06:59
Intake Total 516 / 516 1210 / 1210
Output Total 2099 / 2099 1750 / 1750 2300 / 2300
Balance -2100 / -2100 -1234 / -1234 -1090 / -1090
Physical Exam
Physical Exam
GEN: AAOx3
LUNGS: RA. No audible wheeze
CV: Sinus tachycardia on tele.
EXT: s/p right BKA.
[2025-06-04 12:26] LABS: Total Iron Binding Capacity 220 ug/dl (261-462)
[2025-06-04 12:57] LABS: Glucose - Point of Care 155 mg/dl (70-99)
--- NOTE | 2025-06-04 13:03 | W.PN.NEPH.PH ---
Today's Communication / Plan
-
cont lasix and follow labs
Assessment/Plan
-
40-year-old male type I diabetic since his 20s status post BKA on the right presents with chest pain and shortness of breath with weakness onset about 3 days ago describes a pressure in his chest intermittent
Renal consultation was requested for creatinine of 2 and a potassium of 6.4
Patient has never seen a tuft machine operator but was told his kidney numbers were ' elevated' but unsure what his creatinine is normally.
Patient was found to have DKA as well as NSTEMI.
Status post CTA rule out PE negative
Impression.
Acute kidney injury uncertain baseline.
Pneumonia versus CHF.
Leukocytosis.
NSTEMI.
Hyperkalemia
Type 1 diabetes
DKA
Plan
improving renal function cr 1.8
resume lasix(was held in preparation cath today)
no baseline cr available but suspect there is CKD component
Urine protein creatinine ratio 1.7 likely diabetic etiology
renal US shows No increased echogenicity with large kidneys at 12 cm consistent with diabetic kidney
hb better post PRBC, adequate fe stores
Echocardiogram-ejection fraction 15 to 20%
noted plan of LHC on 06/05
on 06/03 reviewed with pt about risk of LATESHA 26%, dialysis risk 1% based on aren score
no modifiable risk factors currently,
hold diuretic son day of cath
-
-
Date of Service: June 04, 2025
CC / HPI / ROS
-
Chief Complaint:
Presents with chest discomfort
History of Present Illness:
Acute versus chronic kidney disease and hyperkalemia with echo cardiogram finding ejection fraction 15 to 20% with DKA
cr better at 1.8 k 4.1
hb better at 8.6 post PRBC on 06/03
wt is down today
bp stable
Review of Systems:.
No chest pain or shortness of breath
nonoliguric
Labs
-
Labs:
Sodium 134 mmol/L (135-145) L 06/04/25 04:47
Potassium 4.1 mmol/L (3.5-5.1) 06/04/25 04:47
Chloride 105 mmol/L (98-107) 06/04/25 04:47
Carbon Dioxide 24 mmol/L (22-30) 06/04/25 04:47
BUN 47 mg/dl (9-20) H 06/04/25 04:47
Creatinine 1.8 mg/dL (0.7-1.3) H 06/04/25 04:47
eGFR 48.20 06/04/25 04:47
Glucose 129 mg/dl (70-99) H 06/04/25 04:47
Calcium 7.9 mg/dl (8.4-10.2) L 06/04/25 04:47
Rue-Q-Xmzelgwemjm Pept 7670 pg/ml 05/31/25 13:26
Albumin 3.4 g/dl (3.5-5.0) L 06/03/25 19:58
Physical Exam
-
Vital Signs:
Vital Signs
Temp Pulse Resp BP Pulse Ox
98.2 F 92 9 128/86 93
06/04/25 07:08 06/04/25 11:23 06/04/25 11:23 06/04/25 11:23 06/04/25 11:23
Cardiovascular:: Regular rate and rhythm
Respiratory:: Bilateral: CTA
Lung Excursion:: Normal
Abdomen:: Nontender and Soft
Extremity Edema:: +1: Left:
Villafana Catheter: No
Other Findings::
Right BKA
[2025-06-04 13:07] LABS: Ferritin 431.0 ng/ml (17.9-464.0)
[2025-06-04] MEDS: NOVOLOG FLEXPEN 5 UNITS SC ×2 (14:24→18:09)
[2025-06-04] MEDS: NOVOLOG FLEXPEN-LOW RESISTANCE 1 UNITS SC (14:24)
--- NOTE | 2025-06-04 15:01 | PN.CDI ---
CDI
- -
CDI:
Physician Documentation Request
Admit Date: 05/31/25 15:54
Dear Doctor Diallo,
Patient presented with NSTEMI and heart failure
H&P states 'DM 1 hyperglycemia'
Sodium result:
Laboratory Tests
05/31/25 05/31/25 05/31/25
13:26 17:20 20:24
Sodium 131 L 136 135
06/01/25 06/01/25 06/02/25
03:32 18:06 05:29
Sodium 134 L 134 L 135
06/03/25 06/04/25
03:27 04:47
Sodium 133 L 134 L
Could you please provide a diagnosis that supports the above lab abnormalities and additional evaluation/ monitoring:
Hyponatremia
Pseudohyponatremia due to (specify)
abnormal lab value clinically insignificant
Other
Use of terms such as suspected, likely, concern for, or probable (associated with a specific diagnosis that is being evaluated, monitored, or treated as if it exists) are acceptable and can be coded in the inpatient setting, when documented at the
time of discharge.
Thank you,
Ceci Delaney RN, BSN
CDI Specialist
tiger text
Please use your independent medical judgment in providing your response.
--- NOTE | 2025-06-04 15:12 | PN.CDI ---
CDI
- -
CDI:
Physician Documentation Request
Admit Date: 05/31/25 15:54
Dear Doctor Diallo,
The diagnosis of DKA was included in the signed nephrology consult and progress notes.
'Patient was found to have DKA as well as NSTEMI.'
H&P states 'DM 1. hyperglycemia. Non-gap metabolic acidosis. patient without anion gap acidosis but with hyperglycemia.....will start IV insulin gtt'
B-hydroxybutyrate 1.11
06/01 urine neg ketones
Please indicate in your progress notes if you are in agreement that the above diagnosis is valid for this patient:
____ - DKA is a valid diagnosis (Please include it in your progress notes)
____ - DKA is not a valid diagnosis for this patient
____ - Other
Use of terms such as suspected, likely, concern for, or probable are acceptable for a diagnosis that is being evaluated, monitored or treated as if it exists and can be coded in the inpatient setting, when documented at the time of discharge.
Thank you,
Ceci Delaney RN, BSN
CDI Specialist
tiger text
Please use your independent medical judgment in providing your response.
--- NOTE | 2025-06-04 15:23 | CM ---
CM reviewed chart and pt with nursing
Anticipate plan for cardiac cath tomorrow
As pt indep at home with use of prosthetic, CM requested PT/OT once medically appropriate
CM will continue to follow for dc plannign
Discharge Disposition- anticipate home, follow for WOC/VN or possible higher needs
[2025-06-04] MEDS: LASIX 40 MG IV (15:39)
[2025-06-04 16:14] LABS: Hematocrit 27.8 % (39.0-52.0); Hemoglobin 9.4 g/dL (13.0-18.0); Mean Corp Hgb Conc. 33.8 g/dL (33.0-37.0); Mean Corpuscular Volume 88.3 fL (80.0-94.0); Platelet Count 231 10^3/uL (130-400); Red Cell Dist. Width 13.1 % (11.5-14.5)
--- NOTE | 2025-06-04 16:14 | PTCARENOTE ---
Pt states he feels a little dizzy and his hands are cold, Dr Landrum notified. awaiting cbc results
[2025-06-04 17:18] LABS: Glucose - Point of Care 209 mg/dl (70-99)
--- NOTE | 2025-06-04 18:00 | PTCARENOTE ---
Dr Rodriguez notified second time that pt was feeling dizzy and not weel. He is not in hospital Dr Jose palomares coverage notified EKG olivia Early orderd , done and sent. Pt still feels dizzy and weak
[2025-06-04] MEDS: NOVOLOG FLEXPEN-LOW RESISTANCE 2 UNITS SC (18:08)
--- NOTE | 2025-06-04 18:14 | W.PN.UPDATE ---
Update Note
Progress Note Update
Informed by RN that pt has been complaining of dizziness since the afternoon.
Pt seen and examined at bedside. He is AOx3, with stable VS except mild sinus tachycardia on tele. He c/o mild dizziness and mild headache.
Stat EKG obtained (poor quality) showed sinus tachycardia, check stat troponin. If trop significantly elevated from last check (at 6.9) will need to inform card urgently.
Continue to monitor closely.
Can use Tylenol PRN for mild headache.
Informed RN
[2025-06-04 18:54] LABS: Glucose - Point of Care 181 mg/dl (70-99)
--- NOTE | 2025-06-04 18:57 | W.PN.UPDATE ---
Addendum entered and electronically signed by Karen Kwok MD 06/04/25 19:14:
updated RN and family in person
Original Note:
Update Note
Progress Note Update
Stroke alert called for pt due to his c/o R arm weakness that started about 5-10 min prior to assessment.
Pt seen and examined at bedside. His RUE does appear slightly weaker, power 4/5 with hand optician apprentice and flexion. Denies to other neurologic deficit. No slurred speech, etc.
Since stroke alert was called, contacted [facility] as part of the procedure.
Hold heparin drip- agreed by [facility].
Check stat CT head and CT angio- agreed by [facility].
If CT head neg and neurologic symptoms remains mild, Ok to resume heparin drip- agreed by [facility].
CC time 36 min
[2025-06-04 19:02] LABS: Troponin I 1.320 ng/ml
--- NOTE | 2025-06-04 19:18 | PTCARENOTE ---
Addendum entered by Ben [place] RN 06/04/25 19:20:
MADHAV Jang did NIHss at a 5. Parents were at bedside, Pt was taken to [facility]. Order for tx to ICU. Belongings taken to ICU room 8528
Original Note:
While attending to another pt, Mr Leon had a stroke alert called because he stated he could not move ghis R arm to the tech. MADHAV Jang did NO
--- NOTE | 2025-06-04 20:00 | PTCARENOTE ---
NIHSS 4. Aphasia and dysarthria resolved. Pt is still experiencing right sided weakness. Heparin gtt resumed per MD order.
[2025-06-04] MEDS: LIPITOR 80 MG PO (20:37)
[2025-06-04] MEDS: COREG 6.25 MG PO (20:37)
[2025-06-04 20:39] LABS: INR 1.01; PT 13.6 Sec (11.4-14.6)
[2025-06-04 20:40] LABS: APTT 32.4 Sec (23.4-35.0)
--- NOTE | 2025-06-04 22:00 | PTCARENOTE ---
Q1H neurological checks performed per order. GSC 15. Right sided weakness present.
--- NOTE | 2025-06-04 22:04 | W.PN.UPDATE ---
Update Note
Progress Note Update
Patient received after rapid response and stroke alert called for aphasia (expressive) and right arm weakness. Patient still with mild aphasia, weakness in the right arm has resolved. Ct head negative for bleed. Results of CTA Head: There is
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 Additionally there is multifocal high-grade stenosis within the left cavernous ICA secondary to mixed density atherosclerotic plaque. CTA Neck: Extensive
atherosclerotic plaque of the bilateral carotid bifurcations without significant stenosis. [facility] stroke team, Dr. Townsend stroke neurologist, reviewed case and recommendations: maintain SBP <180, can resume heparin gtt, patient not thrombectomy
candidate at this time, and low threshold for repeating Ctscan if stroke symptoms worsen. Communicated events and CTA results with Dr. Jones, general manager road production. In review of patient's vital signs SBP 120-130s, symptoms seemed improved with SBP >140,
goal will be to maintain SBP closer to 140 and monitor neurological symptoms/examination. Currently with SBP 140, patient without aphasia and arm weakness. RN updated to resume heparin gtt and previous rate and recheck PTT to see if within range
per protocol, and new SBP goal closer to 140s. Test results and plan of care reviewed with patient and family at bedside, answered all questions. Continue with neurological checks q1h and closely monitor exam with correlating blood pressures.
[2025-06-04 22:07] LABS: Glucose - Point of Care 156 mg/dl (70-99)
[2025-06-04] MEDS: LANTUS 0.15 UNITS SC (22:40)
[2025-06-04] MEDS: APRESOLINE PO (22:40)
[2025-06-04 23:33] LABS: Blood Urea Nitrogen 43 mg/dl (9-20); Calcium 8.4 mg/dl (8.4-10.2); Carbon Dioxide 23 mmol/L (22-30); Chloride 99 mmol/L (98-107); Estimated Creatinine Clearance 55 ml/min; Glucose 172 mg/dl (70-99); Magnesium 2.1 mg/dl (1.6-2.3); Potassium 4.5 mmol/L (3.5-5.1); Sodium 129 mmol/L (135-145); eGFR 45.17
[2025-06-05] VITALS (27 sets, daily range): BP systolic 113–149; BP diastolic 69–119; BMI 28.9
--- NOTE | 2025-06-05 | PTCARENOTE ---
Neurological checks are unchanged from previous assessment.
[2025-06-05 03:44] LABS: Hematocrit 26.3 % (39.0-52.0); Hemoglobin 9.1 g/dL (13.0-18.0); Mean Corp Hgb Conc. 34.6 g/dL (33.0-37.0); Mean Corpuscular Volume 88.3 fL (80.0-94.0); Platelet Count 235 10^3/uL (130-400); Red Cell Dist. Width 13.1 % (11.5-14.5)
--- NOTE | 2025-06-05 04:00 | PTCARENOTE ---
Pt resting comfortably at this time. Neuro status unchanged.
[2025-06-05 04:03] LABS: APTT 95.8 Sec (23.4-35.0)
[2025-06-05 04:40] LABS: Blood Urea Nitrogen 43 mg/dl (9-20); Calcium 8.4 mg/dl (8.4-10.2); Carbon Dioxide 21 mmol/L (22-30); Chloride 102 mmol/L (98-107); Estimated Creatinine Clearance 55 ml/min; Glucose 166 mg/dl (70-99); Potassium 4.6 mmol/L (3.5-5.1); Sodium 132 mmol/L (135-145); eGFR 45.17
[2025-06-05 05:55] LABS: Folate 16.5 ng/ml (2.76-20); Vitamin B12 480 pg/ml (239-931)
[2025-06-05] MEDS: HEPARIN 25000 UNITS/250 ML IV ×2 (06:18→16:39)
--- NOTE | 2025-06-05 07:15 | PTCARENOTE ---
Pt was rec'd in walking rounds, NIHSS performed in tandem with offgoing RN Juancarlos. Pt's NIHSS 2 at this time, very slight drift noted with RUE and RLE. no aphagia or dysarthria noted. Pt with no complaints at this time, AOx3 with quiet/slightly
flat affect. Pt's dad at bedside. Orders reviewed. Safe environment maintained.
[2025-06-05] MEDS: APRESOLINE PO (07:53)
[2025-06-05 08:10] LABS: Glucose - Point of Care 196 mg/dl (70-99)
--- NOTE | 2025-06-05 08:32 | CON.NEURO ---
Addendum entered and electronically signed by Matt Orourke MD 06/05/25 10:44:
Studies reviewed.
I have personally examined the patient. I reviewed and agree with the FIELD SALES TRAINER's Note.
My addenda:
Awake, alert, interactive. No acute distress.
Speech intact. Mildly aloof.
Follows 2-step requests w/o difficulty. No tremor.
Extra-ocular movements grossly intact.
Facial movements full and symmetric. Hearing intact to normal conversational volume.
Normal UE movements bilaterally.
Neck: full ROM.
Chest: no dyspnea
Heart: no JVD
Ext: (-) Clubbing, (-) Cyanosis, (-) Edema
IMPRESSIONS/RECOMMENDATIONS:
Abrupt onset of aphasia and difficulty with manipulation of the right upper extremity which is a persistent issue. Most likely diagnosis is acute ischemic stroke in this relatively young patient with newly discovered bilateral cavernous sinus
artery stenosis.
Patient should have evaluation and potential neurosurgical intervention for his intracranial arterial stenosis. I have been in contact with a vascular neurosurgeon at the [facility] to determine if the patient would be a reasonable
candidate for transfer to have a neurosurgical procedure
Would continue current antiplatelet therapies
Continue heparin as per cardiology's suggestion without boluses if at all possible to avoid conversion of possible intracranial lesion to a hemorrhagic lesion
Goal of mild hypertension to allow for adequate cerebral perfusion
MRI imaging of brain to determine if stroke has taken place
Atorvastatin 80 mg daily with follow-up of the patient's LDL
Goal of normoglycemia
D/W patient / family / nursing
All questions answered.
Will continue to follow patient.
Original Note:
Documented by User: Carol Shafer NP 06/05/25 09:46
Neuro Assessment/Plan
Assessment
40-year-old male type I diabetic since his 20s status post BKA on the right presented to [facility] on 05/31/2025 with chest pain and shortness of breath with weakness found to be in DKA with NSTEMI on heparin gtt now s/p stroke alert on 06/04/2025.
Head CT: No acute intracranial abnormality.
CTA Head: There is multifocal severe stenosis/near total occlusion of the right cavernous and paraclinoid ICA. Additionally there is multifocal high-grade stenosis within the left cavernous ICA secondary to mixed density atherosclerotic plaque.
CTA Neck: Extensive atherosclerotic plaque of the bilateral carotid bifurcations without significant stenosis.
Plan
Impression: abrupt onset of RUE weakness and aphasia most likely due to ischemic stroke due to severe b/l ICA stenosis
-transfer to [facility] neurosurgery
-check MRI brain without contrast to evaluate for stroke
-SBP goal 140-180 to maximize brain perfusion
-check ARU and PRU to see if he is aspirin and clopidogrel responder, continue for now
-continue heparin gtt
-continue atorvastatin 80 mg
-PT/OT/ST evaluations
-DVT prophylaxis
-continue neurochecks and NIHSS per unit guidelines
All questions encouraged and answered, plan of care discussed with Dr. Orourke, hospitalist, nurse, patient and family
Consultation
Order
Date of Consultation: 06/05/25
Requesting Provider: hospitalist
Reason for Consult: RUE weakness
Subjective/Objective
Subjective Data
Date of Service: June 05, 2025
Adapted from [employer] RECLAIMER note from last night around 1900, 'rapid response and stroke alert called for aphasia (expressive) and right arm weakness. Patient still with mild aphasia, weakness in the right arm has resolved. Ct head negative for bleed.
Results of CTA Head: There is multifocal severe stenosis/near total occlusion of the right cavernous and paraclinoid ICA. Additionally there is multifocal high-grade stenosis within the left cavernous ICA secondary to mixed density atherosclerotic
plaque. CTA Neck: Extensive atherosclerotic plaque of the bilateral carotid bifurcations without significant stenosis. [facility] stroke team, Dr. Townsend stroke neurologist, reviewed case and recommendations: maintain SBP <180, can resume heparin gtt,
patient not thrombectomy candidate at this time, and low threshold for repeating Ctscan if stroke symptoms worsen. Communicated events and CTA results with Dr. Jones, magnetic resonance technologist. In review of patient's vital signs SBP 120-130s, symptoms seemed
improved with SBP >140, goal will be to maintain SBP closer to 140 and monitor neurological symptoms/examination. Currently with SBP 140, patient without aphasia and arm weakness.'
Continues with RUE weakness, states he is 70% back to normal. No longer aphasic, says speech started improving this morning. States he is having trouble 'getting his words out.' Denies weakness, numbness or tingling on left side. Denies issues with
vision. Denies chest pain or SOB. Current NIHSS 1 for RUE drift.
Objective Data
Vital Signs
Temp Pulse Resp BP Pulse Ox
97.9 F 85 5 128/74 97
06/05/25 08:17 06/05/25 07:00 06/05/25 07:00 06/05/25 07:00 06/05/25 07:00
Lab Results
06/05/25 03:33
06/05/25 03:33
PT 13.6 Sec (11.4-14.6) 06/04/25 20:19
INR 1.01 06/04/25 20:19
APTT Cancelled 06/05/25 06:00
Sodium 132 mmol/L (135-145) L 06/05/25 03:33
Potassium 4.6 mmol/L (3.5-5.1) 06/05/25 03:33
BUN 43 mg/dl (9-20) H 06/05/25 03:33
Glucose 166 mg/dl (70-99) H 06/05/25 03:33
Calcium 8.4 mg/dl (8.4-10.2) 06/05/25 03:33
Phosphorus 4.2 mg/dl (2.5-4.5) 06/04/25 23:02
Oyu-W-Mtjfoclyyuw Pept 7670 pg/ml 05/31/25 13:26
LDL Cholesterol Direct 150 mg/dl 06/01/25 03:32
LDL Cholesterol, Calc mg/dl 06/01/25 03:32
Vitamin B12 480 pg/ml (678-058) 06/05/25 03:33
Patient Allergies
No Known Allergies Allergy (Unverified 05/31/25 12:58)
CVA Assessment
Onset of Stroke Symptoms
Onset of symptoms known: Yes
Date of onset of symptoms: 06/04/25
Time of onset of symptoms: 19:00
Time pt last seen normal is known: Yes
Date last time pt seen normal: 06/04/25
Time last time pt seen normal: 19:00
NIH Stroke Score
Level of Consciousness: 0 - Alert
LOC Questions: 0-Answers both correctly
LOC Commands: 0-Performs both correctly
Best Horizontal Gaze: 0-Normal
Visual Sheriff: 0=Normal, no visual loss
Facial Palsy: 0=Normal, symmetrical
Motor - Right Arm: 1=Drift < 10 seconds
Motor - Left Arm: 0=No drift 10 seconds
Motor - Right Le-No drift 5 seconds
Motor - Left Le-No drift 5 seconds
Limb Ataxia: UN-Amputation/jointfusion (R BKA)
Sensation: 0-Normal
Best Language: 0-No aphasia
Dysarthria: 0-Normal
Extinction and Inattention: 0-No abnormality
NIH Total Score:: 1
Tenecteplase Contraindications
Inclusion and Exclusion criteria reviewed: Yes
Reasons for NON-Tx with Thrombolytics ABSOLUTE Exclusions: On IV Heparin within last 48hrs and elevated PTT
IAT Contraindications: NIHSS < 6
Modified [place] Score (MRS)
-
Modified [place] Scale (mRS): Moderate disability. Requires some help, able to walk unassisted.
Score: 3
Physical Exam
-
General: No Apparent Distress and Comfortable
HEENT: Normocephalic, Atraumatic and Anicteric
Neck: Full Range of Motion
Respiratory: No Dyspnea
Cardiac: No JVD
GI: Non-distended
Skin: Unremarkable
Extremities: No Clubbing, No Cyanosis, No Edema and Other (R BKA)
Psych: Other (impaired judgement and insight )
Extended Neurological Exam
Mood & Affect: Other (aloof)
Attention Span & Concentration: Awake, Alert, Interactive and No Difficulty with 2 Step Request
Memory: Unremarkable
Tremor: Hand Tremor Absent and Head Tremor Absent
Involuntary Movement: None
Speech: Quality Unremarkable, Quantity Unremarkable and Rate of Production Unremarkable
Cranial Nerve II: Left Eye: Visual Sheriff Intact
Cranial Nerve II: Right Eye: Visual Sheriff Intact
Cranial Nerves III, IV, : Extraocular Movement: Extraocular Movement Full in all Directions
Cranial Nerve VII: Facial Symmetry: Normal Facial Symmetry
Cranial Nerve VIII: Hearing: Unremarkable Hearing to Normal Conversational Volume
Muscle Strength, Overall: Reduced on Right (RUE)
Pronator Drift: Drift in Right Upper Extremity
Coordination: Oaunds-heqe-kcluxq Testing Unremarkable and Reaches for Objects without Difficulty
Data Reviewed
-
CT-A: Report Reviewed and Image Reviewed
CT-Perfusion: Report Reviewed and Image Reviewed
CT Head: Report Reviewed and Image Reviewed
Labs: Report Reviewed
Reviewed with: Physician, Nurse, Patient and Family
Old Records: Summarized
Medications
-
Active Medications
Generic Name Dose Route Start Last Admin
Trade Name Freq PRN Reason Stop Dose Admin
Acetaminophen 650 mg 06/04/25 18:20
Acetaminophen 325 Mg Tablet PO 07/02/25 18:19
Q4HPRN PRN
mild pain
Aspirin 81 mg 06/01/25 08:00 06/04/25 07:59
Aspirin 81 Mg Chewable Tablet PO 06/29/25 07:59 81 mg
DAILY CORAL Administration
Atorvastatin Calcium 80 mg 05/31/25 18:00 06/04/25 20:37
Atorvastatin (Lipitor) 80 Mg Tablet PO 06/28/25 17:59 80 mg
QPM CORAL Administration
Bisacodyl 10 mg 05/31/25 17:05
Bisacodyl 10 Mg Rectal Suppository RECTAL 06/28/25 17:04
[id number] PRN
constipation
Carvedilol 6.25 mg 06/04/25 20:00 06/04/25 20:37
Carvedilol 6.25 Mg Tablet PO 07/02/25 19:59 6.25 mg
BID CORAL Administration
Clopidogrel Bisulfate 75 mg 06/02/25 08:00 06/04/25 07:58
Clopidogrel 75 Mg Tablet PO 06/30/25 07:59 75 mg
DAILY CORAL Administration
Dextrose 12.5 grams 05/31/25 20:10
Dextrose 50% (0.5 Grams/Ml) 50 Ml Syringe IV 06/28/25 20:09
[id number] PRN
hypoglycemia
Protocol
Furosemide 40 mg 06/01/25 08:00 06/04/25 15:39
Furosemide 40 Mg (10 Mg/Ml) 4 Ml Vial IV 06/29/25 07:59 40 mg
BID AT 0800,1600 CORAL Administration
Glucagon 1 mg 05/31/25 20:10
Glucagon 1 Mg Vial IM 06/28/25 20:09
PRN PRN
hypoglycemia
Protocol
Hydralazine HCl 50 mg 06/03/25 08:00 06/05/25 07:53
Hydralazine 50 Mg Tablet PO 07/01/25 07:59 Not Given
TID CORAL
Insulin Glargine 15 units/ 0.15 mls @ 0 mls/hr 06/01/25 22:00 06/04/25 22:40
Device SC 06/29/25 21:59 0.15 mls
HS CORAL Administration
As Directed
Heparin Sodium 25,000 units in 250 mls @ 0 mls/hr 06/02/25 23:00 06/05/25 06:18
Heparin 00344 Units/250 Ml IV 250 mls
PER PROTOCOL CORAL Administration
Protocol
Per Protocol
Insulin Aspart 0 units 06/01/25 07:30 06/04/25 18:08
Insulin Aspart Low Resistance 300 Units/3 Ml Pen.Injctr SC 06/29/25 07:29 2 units
AC CORAL Administration
Protocol
Insulin Aspart 5 units 06/01/25 08:00 06/04/25 18:09
Insulin Aspart (Novolog) 100 Units/Ml 3 Ml Flexpen SC 06/29/25 07:59 5 units
AC CORAL Administration
Isosorbide Dinitrate 5 mg 06/02/25 16:00 06/04/25 22:40
Isosorbide Dinitrate 5 Mg Regular Release Tablet PO 06/30/25 15:59 5 mg
TID CORAL Administration
Pantoprazole Sodium 40 mg 06/02/25 08:00 06/04/25 07:59
Pantoprazole 40 Mg Delayed Release Tablet PO 06/30/25 07:59 40 mg
DAILY CORAL Administration
Polyethylene Glycol 17 grams 05/31/25 17:05
Polyethylene Glycol Powder 17 Grams Packet PO 06/28/25 17:04
DAILYPRN PRN
constipation
Senna/Docusate Sodium 1 tablet 05/31/25 17:05
Docusate W/Senna (Linda-Colace) Tablet PO 06/28/25 17:04
BIDPRN PRN
constipation
Sodium Chloride 0 flush 05/31/25 17:00
Sodium Chloride 0.9% (Flush) Syringe IV 06/28/25 16:59
PER PROTOCOL CORAL
Sodium Chloride 0 sprays 06/02/25 11:33
Sodium Chloride 0.65% Nasal Shiloh 45 Ml Bottle NASAL 06/30/25 11:32
QIDPRN PRN
dryness, congestion
Sodium Hypochlorite 0 ml 06/05/25 08:00
Dakin's Solution 0.125% (1/4 Strength) 473 Ml Bottle TOPICAL 07/03/25 07:59
DAILY CORAL
Home Medications
�Medication �Instructions �Recorded
insulin glargine 100 unit/mL (3 14 unit SC HS Diabetes 05/31/25
mL) subcutaneous pen (Lantus
Solostar U-100 Insulin)
insulin lispro 100 unit/mL 6 sliding scale dose SC AC Diabetes 05/31/25
subcutaneous pen
Past History
Past History
ED Past Medical History: IDDM; Negative CO
ED Past Surgical History: Negative Cardiac
Family/Social History
Tobacco: Non-smoker
Alcohol: None
Drug: None
Living: with family
Employment: Employed
Family History: Diabetes

Documented by User: Matt Orourke MD 06/05/25 10:39
CVA Assessment
NIH Stroke Score
NIH Total Score:: 1
Modified [place] Score (MRS)
-
Score: 3
--- NOTE | 2025-06-05 09:06 | W.PN.HOSP.TC ---
Today's Communication/Plan
-
cw IV heparin
cw DAPT
Aim for SBP >140
Transfer to [facility] when bed available
Assessment / Plan
Assessment / Plan
Mr. Leon is a 40-year-old male with a medical history of type 1 diabetes mellitus and PAD (status post BKA 2023) who presented with acute onset chest pain and shortness of breath. In the ED, he underwent CT angiography to evaluate which was
negative for pulmonary embolism but did show extensive bilateral pulmonary edema. Lab work revealed significantly elevated troponins. EKG did not show STEMI but did show nonspecific T wave abnormalities. Bedside echo showed severely reduced
ejection fraction with wall motion abnormalities. He was started on IV heparin drip and admitted for further evaluation and management.
Acute change in neurological status with dizziness, speech impairment ?expressive aphasia and transient right arm weakness - now resolved .suspected TIA.
CT head neg
Stroke alert was called and case dw neuro patient coordinator front desk [facility].
Continued on IV heparin n DAPT for now.
CT angio head and neck shows -
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 There is multifocal high-grade stenosis within the left cavernous ICA. Bilateral petrous, cavernous, and supraclinoid internal carotid arteries (ICAs) segments.
Allow permissive hypertension-aim to keep blood pressure more than 140
DW neuro today - transfer to [facility] for neuro vascular eval and interventions
NSTEMI
acute HFrEF:
Symptomatically improved.
- Continue IV heparin drip
- Echocardiogram shows LVEF 15 to 20% with regional wall motion abnormalities
- Transitioned to Isordil, nitroglycerin drip was discontinued
- Continue aggressive diuresis with Lasix 40 mg IV twice daily
- Hydralazine increased to 50 mg 3 times a day
- Beta-blockade with low-dose carvedilol 3.125 mg twice daily, titrate up as able
- Cardiology following, left and right heart cath tentatively planned for sometime early this week but now on hold due to above TIA
- Loaded with Plavix, continue DAPT
- Daily p.o. PPI
- Abnormal lipids with triglycerides 454 and total cholesterol 310 (LDL 150, HDL 43)
-Continue with GDMT medication with permissive hypertension
Anemia:
- Initial hemoglobin at time of arrival was 10.3, has been trending slowly down despite presumed hemoconcentration with aggressive diuresis, hemoglobin was 7.4 on labs this morning
- Unclear etiology, no overt evidence of bleeding, checking stool for occult blood, likely contributed to by suspected CKD
- Transfused 1 unit PRBCs 06/03. HH stable
- Continuing PPI
- Would transfuse to maintain threshold greater than 8.0 considering NSTEMI
- Will check labs for hemolysis although doubt this is the issue -haptoglobin pending, LDH mildly elevated. reticulocyte count 2.8
- Normocytic and heme neg
- Iron studies suggest ACD - pt has JASON vs CKD which might be playing a role
- Heme consulted
JASON:
- Creatinine on initial labs 2.0-improving to 1.9 today
- No reported history of CKD, unknown baseline renal function
- Likely multifactorial due to poor perfusion in the setting of NSTEMI with acute HFrEF, also uncontrolled diabetes
- Monitor for improvement in renal function with diuresis
- Received contrast for CTA, will have to monitor renal function closely with upcoming left heart cath
Type 1 diabetes mellitus:
- Continue long and short acting insulin, currently at this 15 units at night add NovoLog 5 units with meals
- Additional sliding scale as needed
- Diabetic diet
- Continue Accu-Cheks
- Hemoglobin A1c 9.1%
Hyperkalemia:
- Mild with potassium of 5.5 initially, likely related to JASON
- Now resolved
- Continue telemetry monitoring
DVT prophylaxis: IV heparin
CODE STATUS: Full code
Discussed with neurology, Nuclear Powerplant Supervisor , father at bedside, and PUBLIC HEALTH NUTRITIONIST
Called [facility] transfer center ,discussed with neuro/stroke, stepdown ICU attending and cardiac team and pt is accepted to stepdown ICU under Raimundo Decker.
Total Critical Care Time__35___ minutes. I was immediately available to the patient and staff. I personally examined, reviewed labs, diagnostic images/reports, interpretations, treatment plans, discussed patient care with other providers and
family or caregivers (if patient is unable to make decisions), entered orders as appropriate and documented the medical record.
Anticipated Discharge: Today
Subjective/Interval History
-
Date of Service: June 05, 2025
last evening events/stroke alert noted.
Denies any further speech impairment or right arm weakness.
Denies any chest pressure, chest pain or SOB today.
No N/V.
Denies dizziness.
Objective Data
-
Labs:
Laboratory Results
06/04/25 06/05/25 06/05/25
23:02 03:33 06:00
WBC 8.7
Hgb 9.1 L
Hct 26.3 L
Plt Count 235
APTT 95.8 H Cancelled
Sodium 129 L 132 L
Potassium 4.5 4.6
Chloride 99 102
Carbon Dioxide 23 21 L
BUN 43 H 43 H
Creatinine 1.9 H 1.9 H
Glucose 172 H 166 H
Calcium 8.4 8.4
06/05/25
09:35
WBC
Hgb
Hct
Plt Count
APTT Pending
Sodium
Potassium
Chloride
Carbon Dioxide
BUN
Creatinine
Glucose
Calcium
Vital Signs:
Vital Signs
Temp Pulse Resp BP Pulse Ox
97.9 F 85 5 128/74 97
06/05/25 08:17 06/05/25 07:00 06/05/25 07:00 06/05/25 07:00 06/05/25 07:00
I&O
06/04/25 06/05/25 06/06/25
06:59 06:59 06:59
Intake Total 1210 / 1210
Output Total 2299 / 2299
Balance -1090 / -1090 -1859 -1859
Physical Exam
-
General: Comfortable
Respiratory: Clear to Auscultation and Non Labored Respirations; Negative Accessory Resp Muscle Use
Cardiac: Regular Rhythm and S1/S2; Negative Tachycardic
GI: Soft and Nontender
Musculoskeletal: Other (left leg amputation)
Neuro: AO x 3 and No Motor Deficits
Psych: Calm; Negative Confused
Data Reviewed
-
CT Scan: Report Reviewed by me (CT head and CT Angio head and neck)
Labs: Labs Reviewed by me
[2025-06-05] MEDS: NOVOLOG FLEXPEN 5 UNITS SC (09:07)
[2025-06-05] MEDS: NOVOLOG FLEXPEN-LOW RESISTANCE 1 UNITS SC (09:07)
[2025-06-05] MEDS: LOW STRENGTH ASPIRIN 81 MG PO (09:08)
[2025-06-05] MEDS: PLAVIX 75 MG PO (09:08)
[2025-06-05] MEDS: COREG 6.25 MG PO (09:08)
[2025-06-05] MEDS: ISORDIL 5 MG PO (09:08)
[2025-06-05] MEDS: DAKIN'S SOLUTION 0.125% 1/4 STRENGTH 473 ML TOPICAL (09:09)
[2025-06-05] MEDS: LASIX 40 MG IV (09:09)
[2025-06-05] MEDS: PROTONIX 40 MG PO (09:09)
[2025-06-05] MEDS: OCEAN, SALINE MIST 50 SPRAYS NASAL (09:26)
--- NOTE | 2025-06-05 09:28 | CON.ONC ---
Consultation
-
Date Consultation Requested: 06/04/25
Date Consultation Performed: 06/05/25
Requesting Provider: Misael Landrum MD
Performing Provider: Gena Samaniego MD
Reason for Consultation: Anemia in a young man, heme neg
Impression
Impression
40-year-old male with past medical history of type 1 diabetes and peripheral artery disease status post right BKA 2023 admitted for NSTEMI, new onset HFrEF (Echo 05/31/25 EF 15-20%), JASON and hyperkalemia found to have severe bilateral cavernous
sinus artery stenosis after TIA like symptoms now in the ICU with plans to transfer to [facility] for possible neurosurgical interventions is being evaluated by hematology oncology for normocytic anemia status post 1 unit of packed red blood cells and
possible underlying hereditary clotting disorder.
Problem list:
NSTEMI
HFrEF
Strokelike symptoms - bilateral cavernous sinus artery stenosis
Pulmonary edema
Uncontrolled type 1 diabetes
JASON
Chronic anemia
Hyperkalemia
Plan
Plan
Normocytic anemia
-- Hemoccult negative, no signs of active bleed
-- Hemoglobin 7.4 on 06/03 status post 1 unit packed red blood cells
-- Transfuse for hemoglobin < 8 given ACS
-- Not iron deficiency and low suspicion for hemolytic as LDH only slightly elevated, reticulocyte count 2.8, bilirubin has been within normal limits however haptoglobin pending
-- Likely anemia of chronic disease in setting of acute illness
Family history of blood clotting disorder
-- Mom has unknown clotting disorder which causes DVTs for which she is on Eliquis
-- Start workup for hypercoagulable state
-- JASON although suspect some chronic component - could be underlying nephrotic syndrome with loss of coagulation factors or possible underlying etiology causing kidney damage - nephrology following
-- Immunoglobulin levels pending, CASSANDRA and SPEP, immunofixation electrophoresis, free kappa and lambda light chains pending, alpha-1 alpha-2 beta globulins and kappa globulins pending, anticardiolipin antibodies pending
Pt plans to get transferred to [facility]. Continued management per primary and specialty teams.
DVT - on heparin drip
Full code
Patient History
History of Present Illness
40 y/o male with PMHx of type 1 diabetes and peripheral artery disease status post right BKA 2023 presented to the hospital with chest pain. He endorses slight cough, shortness of breath and weakness which began about 3 days prior. He denied any
fever, chills, nausea, vomiting, diarrhea. SaO2 87% and put on 6L of oxygen. EKG revealed sinus tach [address] depressions in leads II, aVF, V5 V6 and he had a troponin elevation of 2.11. CTA ruled out PE however revealed pulmonary edema versus
pneumonia. Echo revealed new EF of 15 to 20% with global hypokinesis. His creatinine was 2.0 and potassium 6.4. He was provided loading doses of aspirin, 80 mg IV Lasix, sodium bicarb and 10 units of regular insulin and nephrology and cardiology
were consulted. He was admitted to the IMU for workup of NSTEMI, new onset HFrEF, hyperkalemia and JASON. Due to JASON, cardiology deferred cardiac catheterization until renal function improved. He was started on Plavix and troponin peaked at 9.48 on
06/01. Cardiology attempted to optimize his GDMT he with Coreg, Isosorbide dinitrate, diuresis and also placed on hydralazine. Patient noted to have LDL of 150 and started on atorvastatin 80. Nephrology agreed with diuresis and renal ultrasound
revealed large kidneys consistent with diabetic kidneys. Urine protein creatinine ratio was 1.7 suspected likely to due to underlying diabetes. Renal function slowly started to improve. Hemoglobin A1c was noted to be 9.1 and diabetic nurse
practitioner adjusted insulin according to sugar levels.
On 06/03/25, hemoglobin was noted to be 7.4. On admission it was 10.3. He received 1 unit of packed red blood cells with goal of hemoglobin > 8 due to ACS. Hemoccult was negative and no other signs of active bleed. The next day, hematology was
consulted for further evaluation as etiology of anemia unclear. Cardiac cath further deferred due to anemia.
On 06/04/25, stroke alert was called due to new onset dizziness, headache and right arm weakness. Heparin drip was held imaging done. CT revealed no intracranial abnormalities and head CTA revealed severe bilateral ICA stenotic disease. Heparin drip
was restarted and discussions began regarding transfer to [facility] for possible neurosurgical interventions. Goal SBP between 140 and 180 as they suspect his neurological symptoms developed in settings of decreased perfusion with new gdmt optimization
and severe stenosis.
Heme/onc was consulted to evaluate the patients anemia. Per his father, his mom does have some hereditary clotting disorder that results in DVTs for which she is on eliquis, but neither of them can recall the name. Labs for underlying hereditary
work up were sent out.
Past-Medical/Surgical History
Past medical history: Type 1 diabetes, peripheral vascular disease
Past surgical history: Right-sided below the knee amputation 2023
Patient Medication
�Medication �Instructions �Recorded �Confirmed �Last Taken �Type
insulin glargine 100 unit/mL (3 14 unit SC HS Diabetes 05/31/25 05/31/25 05/30/25 History
mL) subcutaneous pen (Lantus
Solostar U-100 Insulin)
insulin lispro 100 unit/mL 6 sliding scale dose SC AC Diabetes 05/31/25 05/31/25 05/30/25 History
subcutaneous pen
Active Medications
Generic Name Dose Route Start Last Admin
Trade Name Freq PRN Reason Stop Dose Admin
Acetaminophen 650 mg 06/04/25 18:20
Acetaminophen 325 Mg Tablet PO 07/02/25 18:19
Q4HPRN PRN
mild pain
Aspirin 81 mg 06/01/25 08:00 06/05/25 09:08
Aspirin 81 Mg Chewable Tablet PO 06/29/25 07:59 81 mg
DAILY CORAL Administration
Atorvastatin Calcium 80 mg 05/31/25 18:00 06/04/25 20:37
Atorvastatin (Lipitor) 80 Mg Tablet PO 06/28/25 17:59 80 mg
QPM CORAL Administration
Bisacodyl 10 mg 05/31/25 17:05
Bisacodyl 10 Mg Rectal Suppository RECTAL 06/28/25 17:04
[id number] PRN
constipation
Carvedilol 6.25 mg 06/04/25 20:00 06/05/25 09:08
Carvedilol 6.25 Mg Tablet PO 07/02/25 19:59 6.25 mg
BID CORAL Administration
Clopidogrel Bisulfate 75 mg 06/02/25 08:00 06/05/25 09:08
Clopidogrel 75 Mg Tablet PO 06/30/25 07:59 75 mg
DAILY CORAL Administration
Dextrose 12.5 grams 05/31/25 20:10
Dextrose 50% (0.5 Grams/Ml) 50 Ml Syringe IV 06/28/25 20:09
[id number] PRN
hypoglycemia
Protocol
Furosemide 40 mg 06/01/25 08:00 06/05/25 09:09
Furosemide 40 Mg (10 Mg/Ml) 4 Ml Vial IV 06/29/25 07:59 40 mg
BID AT 0800,1600 CORAL Administration
Glucagon 1 mg 05/31/25 20:10
Glucagon 1 Mg Vial IM 06/28/25 20:09
PRN PRN
hypoglycemia
Protocol
Hydralazine HCl 50 mg 06/03/25 08:00 06/05/25 07:53
Hydralazine 50 Mg Tablet PO 07/01/25 07:59 Not Given
TID CORAL
Insulin Glargine 15 units/ 0.15 mls @ 0 mls/hr 06/01/25 22:00 06/04/25 22:40
Device SC 06/29/25 21:59 0.15 mls
HS CORAL Administration
As Directed
Heparin Sodium 25,000 units in 250 mls @ 0 mls/hr 06/02/25 23:00 06/05/25 06:18
Heparin 21595 Units/250 Ml IV 250 mls
PER PROTOCOL CORAL Administration
Protocol
Per Protocol
Insulin Aspart 0 units 06/01/25 07:30 06/05/25 09:07
Insulin Aspart Low Resistance 300 Units/3 Ml Pen.Injctr SC 06/29/25 07:29 1 units
AC CORAL Administration
Protocol
Insulin Aspart 5 units 06/01/25 08:00 06/05/25 09:07
Insulin Aspart (Novolog) 100 Units/Ml 3 Ml Flexpen SC 06/29/25 07:59 5 units
AC CORAL Administration
Isosorbide Dinitrate 5 mg 06/02/25 16:00 06/05/25 09:08
Isosorbide Dinitrate 5 Mg Regular Release Tablet PO 06/30/25 15:59 5 mg
TID CORAL Administration
Pantoprazole Sodium 40 mg 06/02/25 08:00 06/05/25 09:09
Pantoprazole 40 Mg Delayed Release Tablet PO 06/30/25 07:59 40 mg
DAILY CORAL Administration
Polyethylene Glycol 17 grams 05/31/25 17:05
Polyethylene Glycol Powder 17 Grams Packet PO 06/28/25 17:04
DAILYPRN PRN
constipation
Senna/Docusate Sodium 1 tablet 05/31/25 17:05
Docusate W/Senna (Linda-Colace) Tablet PO 06/28/25 17:04
BIDPRN PRN
constipation
Sodium Chloride 0 flush 05/31/25 17:00
Sodium Chloride 0.9% (Flush) Syringe IV 06/28/25 16:59
PER PROTOCOL CORAL
Sodium Chloride 0 sprays 06/02/25 11:33 06/05/25 09:26
Sodium Chloride 0.65% Nasal [place] 45 Ml Bottle NASAL 06/30/25 11:32 50 sprays
QIDPRN PRN Administration
dryness, congestion
Sodium Hypochlorite 0 ml 06/05/25 08:00 06/05/25 09:09
Dakin's Solution 0.125% (1/4 Strength) 473 Ml Bottle TOPICAL 07/03/25 07:59 473 ml
DAILY CORAL Administration
Review of Systems
-
Unable to obtain full review of systems at this time due to: Dementia
Constitutional: Reports No Symptoms
EENT: Reports No Symptoms
Respiratory: Reports No Symptoms
Cardiac: Reports No Symptoms
GI: Reports No Symptoms
Skin: Reports No Symptoms
Neuro: Reports Weakness
Physical Exam
-
General: No Apparent Distress and Comfortable
Cardiology: Normal Sinus Rhythm, S1 and S2
Pulmonary: Clear
GI: Soft and Normal Bowel Sounds
Musculoskeletal: No Edema and Other (Right BKA)
Neurology: Other (Some right arm and right leg drift. NIH score 1 for slight right arm drift )
Skin: Warm and Dry
Psych: Calm
Labs
Lab Results
WBC 8.7 10^3/uL (4.8-10.8) 06/05/25 03:33
RBC 2.98 10^6/uL (4.70-6.10) L 06/05/25 03:33
Hgb 9.1 g/dL (13.0-18.0) L 06/05/25 03:33
Hct 26.3 % (39.0-52.0) L 06/05/25 03:33
MCV 88.3 fL (80.0-94.0) 06/05/25 03:33
MCH 30.5 pg (27.0-31.0) 06/05/25 03:33
MCHC 34.6 g/dL (33.0-37.0) 06/05/25 03:33
RDW 13.1 % (11.5-14.5) 06/05/25 03:33
Plt Count 235 10^3/uL (130-400) 06/05/25 03:33
MPV 10.4 fL (7.4-10.4) 06/05/25 03:33
Abs Immat Gran (auto) 0.1 10^3/uL (0-0.05) H 05/31/25 13:26
Absolute Neuts (auto) 10.3 10^3/uL (1.4-6.5) H 05/31/25 13:26
Absolute Lymphs (auto) 0.8 10^3/uL (1.2-3.4) L 05/31/25 13:26
Absolute Monos (auto) 0.6 10^3/uL (0.1-0.6) 05/31/25 13:26
Absolute Eos (auto) 0.0 10^3/uL (0-0.7) 05/31/25 13:26
Absolute Basos (auto) 0.0 10^3/uL (0-0.2) 05/31/25 13:26
Immature Gran % 0.8 % (0-0.5) H 05/31/25 13:26
Neutrophils % 87.5 % (42.2-75.2) H 05/31/25 13:26
Lymphocytes % 6.6 % (20.5-51.1) L 05/31/25 13:26
Monocytes % 4.8 % (1.7-9.3) 05/31/25 13:26
Eosinophils % 0.1 % (0-6) 05/31/25 13:26
Basophils % 0.2 % (0-2) 05/31/25 13:26
Creatinine 1.9 mg/dL (0.7-1.3) H 06/05/25 03:33
Vital Signs
Vital Signs
Temp Pulse Resp BP Pulse Ox
97.9 F 90 5 133/78 97
06/05/25 08:17 06/05/25 09:08 06/05/25 07:00 06/05/25 09:08 06/05/25 07:00
--- NOTE | 2025-06-05 09:30 | PN.DE.MGMTRT ---
Insulin Management
- -
06/05/2025 Diabetes Management Consult Follow up
Patient admitted 05/31 with CP SOB - NSTEMI. PMH RBKA, type 1 diabetes since age 24. Prior to admission was taking lispro 6 units AC with lantus 14 units @ HS. A1C on admission 9.1%, cr 2.1, eGFR 40.06.
Patient is awake alert and oriented able to discuss diabetes care. States he sees his primary doctor for ongoing diabetes care. Has glucose monitor with adequate supplies.
Last evening patient c/o headache, feeling dizzy, some aphasia and R arm weakness. Patient transferred to ICU level of care - Stroke alert - CT head - negative. Today no expressive aphasia or arm weakness. Father at bedside.
Glucose range yesterday 146 to 181. 3AM glucose 166, fasting 196. Will increase hs lantus to 17 units and AC novolog 7 units with low corrective. Diet changed from 2200 to 1800 calorie.
Discussed with nurse.
Will Follow
Diabetes History
- -
Type of Diabetes: 1
Pre-Admission Diabetes Regimen
06/04/25 06/05/25
23:02 03:33
Creatinine 1.9 H 1.9 H
Lab Results
Hemoglobin A1c 9.1 % (4.0-5.6) H 05/31/25 17:20
Insulin Pump Settings
IP Diabetes Regimen
06/04/25 06/04/25 06/04/25
12:46 17:07 18:43
Glucose
POC Glucose 155 H 209 H 181 H
06/04/25 06/04/25 06/05/25
21:56 23:02 03:33
Glucose 172 H 166 H
POC Glucose 156 H
06/05/25
07:59
Glucose
POC Glucose 196 H
Meal type: Dinner
Amount consumed: 50%
Patient Education
--- NOTE | 2025-06-05 09:31 | W.PN.NEPH.PH ---
Today's Communication / Plan
-
follow BMP
Assessment/Plan
-
40-year-old male type I diabetic since his 20s status post BKA on the right presents with chest pain and shortness of breath with weakness onset about 3 days ago describes a pressure in his chest intermittent
Renal consultation was requested for creatinine of 2 and a potassium of 6.4
Patient has never seen a public information specialist but was told his kidney numbers were ' elevated' but unsure what his creatinine is normally.
Patient was found to have DKA as well as NSTEMI.
Status post CTA rule out PE negative
Impression.
Acute kidney injury (b/l 1.1 within last year)
HFrEF
Leukocytosis.
NSTEMI.
Hyperkalemia
Type 1 diabetes
DKA
proteinuria
Plan
follow BMP
cath postponed with recent stroke alert
hopefully most of JASON is from CN and he will recover more function
-
-
Date of Service: June 05, 2025
CC / HPI / ROS
-
Chief Complaint:
Presents with chest discomfort
History of Present Illness:
Acute and hyperkalemia with echo cardiogram finding ejection fraction 15 to 20% with DKA
JASON/Cr stable 1.9
Hgb stable 9.1
BP stable
stroke alert yesterday with aphasia and weakness, CT negative
Review of Systems:.
No chest pain or shortness of breath
nonoliguric
Labs
-
Labs:
WBC 8.7 10^3/uL (4.8-10.8) 06/05/25 03:33
RBC 2.98 10^6/uL (4.70-6.10) L 06/05/25 03:33
Hgb 9.1 g/dL (13.0-18.0) L 06/05/25 03:33
Hct 26.3 % (39.0-52.0) L 06/05/25 03:33
Plt Count 235 10^3/uL (130-400) 06/05/25 03:33
Sodium 132 mmol/L (135-145) L 06/05/25 03:33
Potassium 4.6 mmol/L (3.5-5.1) 06/05/25 03:33
Chloride 102 mmol/L (98-107) 06/05/25 03:33
Carbon Dioxide 21 mmol/L (22-30) L 06/05/25 03:33
BUN 43 mg/dl (9-20) H 06/05/25 03:33
Creatinine 1.9 mg/dL (0.7-1.3) H 06/05/25 03:33
eGFR 45.17 06/05/25 03:33
Glucose 166 mg/dl (70-99) H 06/05/25 03:33
Calcium 8.4 mg/dl (8.4-10.2) 06/05/25 03:33
Phosphorus 4.2 mg/dl (2.5-4.5) 06/04/25 23:02
Ylk-W-Hsiqkhhpnoy Pept 7670 pg/ml 05/31/25 13:26
Albumin 3.4 g/dl (3.5-5.0) L 06/03/25 19:58
Physical Exam
-
Vital Signs:
Vital Signs
Temp Pulse Resp BP Pulse Ox
97.9 F 90 5 133/78 97
06/05/25 08:17 06/05/25 09:08 06/05/25 07:00 06/05/25 09:08 06/05/25 07:00
Cardiovascular:: Regular rate and rhythm
Respiratory:: Bilateral: Coarse
Lung Excursion:: Normal
Abdomen:: Nontender and Soft
Bowel Sounds:: Normal
Extremity Edema:: +1: Bilateral:
[2025-06-05 10:07] LABS: APTT 93.6 Sec (23.4-35.0)
[2025-06-05 10:50] LABS: VerifyNow Aspirin 527 ARU; VerifyNow PRU 353 PRU (180-376)
--- NOTE | 2025-06-05 11:04 | CON.INTV ---
Consultation
Consultation Request
Date/Time Consultation Requested: 06/05/2025
Date/Time Consultation Performed: 06/05/2025
Requesting Provider: Dr. Landrum
Performing Provider: Dr. Best Edmonds
Reason for Consultation: Acute CVA/acute systolic heart
Medical History
-
History of Present Illness:
40-year-old man poorly controlled type I diabetic, status post right BKA in 2023, peripheral arterial diseas presented to the emergency room initially with chest pain and shortness of breath on 05/31/2025.
Patient was found to have acute systolic cardiomyopathy with possible coronary artery disease. Diagnosed with pulmonary edema, improved with diuresis. Back on room air.
On admission sugars were poorly controlled. Patient required insulin drip due to nongap metabolic acidosis
Also found to have elevated creatinine and anemia.
Cardiology evaluating for possible ischemic workup. Remain on heparin drip.
On 06/04/2025 stroke alert was called-patient complained of right arm weakness.
CT of the head and neck was performed: Symptoms subsided with allowing some permissive hypertension with systolic blood pressure in the 140s.
He was transferred to the critical care unit for further care.
This morning patient denied any significant neurological symptoms.
Denies headache, blurry vision nausea or vomiting. Right-sided weakness has resolved.
Imaging of the neck and head demonstrated extensive atherosclerotic plaque bilaterally with carotic bifurcation involvement. No significant stenosis
There is multifocal severe stenosis/near total occlusion of the right cavernous and paraclinoid ICA. Additionally there is multifocal high-grade stenosis within the left cavernous ICA secondary to mixed density atherosclerotic plaque.
-
Past Medical History
Past Medical History: Other (See assessment)
Social History
Tobacco: Non-smoker
Alcohol: None
Drug: None
Living: With Family
Family History
Family History: Reviewed & Not Pertinent
Allergies / Home Medications
Allergies
Allergy/AdvReac Type Severity Reaction Status Date / Time
No Known Allergies Allergy Unverified 05/31/25 12:58
Home Medications
�Medication �Instructions �Recorded �Confirmed �Last Taken �Type
insulin glargine 100 unit/mL (3 14 unit SC HS Diabetes 05/31/25 05/31/25 05/30/25 History
mL) subcutaneous pen (Lantus
Solostar U-100 Insulin)
insulin lispro 100 unit/mL 6 sliding scale dose SC AC Diabetes 05/31/25 05/31/25 05/30/25 History
subcutaneous pen
Review of Systems
-
History Source: Patient
All other systems: Negative unless noted
Vitals / Labs / Diagnostic Testing
Vital Signs
Temp Pulse Resp BP Pulse Ox
97.9 F 91 17 126/73 95
06/05/25 08:17 06/05/25 10:31 06/05/25 10:31 06/05/25 10:31 06/05/25 10:31
Lab Data
06/05/25 03:33
06/05/25 03:33
Laboratory Results
06/04/25 06/05/25 06/05/25
20:19 03:33 06:00
PT 13.6
INR 1.01
APTT 32.4 95.8 H Cancelled
06/05/25
09:26
PT
INR
APTT 93.6 H
Microbiology
05/31/25 17:20 Nose MRSA Screen - Final
No Methicillin Resistant Staphylococcus aureus isolated.
Diagnostic Testing:
Physical Exam
-
HEENT: Normocephalic
Cardiovascular: S1/S2
Respiratory: Non-Labored Respirations
GI: Soft and Non Distended
Neurology: Awake, Alert, Oriented, AO x 3 and No Motor Deficits
Skin: Warm and Other (Right BKA)
General: Comfortable
Assessment
-
40-year-old male with past medical history noted. Initially admitted with shortness of breath and chest pain. Found to have systolic cardiomyopathy likely ischemic. On heparin drip. Overnight developed right sided clumsiness and aphasia.
Improved at this point. Imaging demonstrated cavernous sinus stenosis. Transferred to the critical care unit for close monitoring.
Strokelike symptoms: Aphasia/right-sided upper extremity? Weakness/clumsiness.
Suspected possible ischemic CVA
Imaging discovered bilateral cavernous sinus artery stenosis.
Acute systolic heart failure/likely ischemic.
Chest x-ray 06/04/2025: Cardiomegaly/pulmonary edema
Echocardiogram 05/31/2025: Report reviewed, ejection fraction 15-20%. Global hypokinesis. Mild LVH. Normal right ventricular size and function. Mild MR. Pulmonary artery pressure 35 to 40 mmHg.
Acute coronary [id number]-[id number]-MG elevation myocardial infarction.
Pulmonary edema: Improved post diuresis.
Uncontrolled type 1 diabetes
Acute kidney injury: Suspect chronic component
Chronic anemia
Assessment and plan:
Type 1 diabetes
Peripheral vascular disease
Right BKA
Assessment and plan:
Suspected acute CVA based on symptoms.
CT head/neck:There is multifocal severe stenosis/near total occlusion of the right cavernous and paraclinoid ICA. Additionally there is multifocal high-grade stenosis within the left cavernous ICA secondary to mixed density atherosclerotic plaque.
-
Case discussed with neurology-recommended transfer to tertiary care [facility] for neurovascular surgery evaluation.
Patient is neurologically improved. Still complaining of some clumsiness on the right hand. Speech difficulties resolved
Continue heparin drip
Allow permissive hypertension the patient feels better neurologically.
Continue antiplatelets
MRI brain has been ordered and pending.
If there is decompensation stat CT chest will be necessary
every 4 Neurochecks
-
Acute systolic cardiomyopathy with pulmonary edema
Improved post diuresis-continue IV Lasix.
Cardiology following
Continue goal-directed therapy
Eventually will need ischemic evaluation with a cardiac catheterization.
-
Anemia: Suspect chronic component
Chronic kidney disease suspected
Nephrology following
Avoid nephrotoxins
Renal ultrasound without hydronephrosis.
-
Type 1 diabetes: Poorly controlled
Continue insulin supplement
Insulin sliding scale
-
If stable this afternoon will transfer back to telemetry.
-
Critical care statement: A total of 32 minutes of critical care time was provided for this patient today. This includes management of unstable vital signs, evaluation of the patient at bedside, reviewing the patient's pertinent medical records
including ventilator settings, arterial blood gases, radiographs, microbiology, laboratory evaluations and discussion with primary team, critical care nursing, and respiratory therapy.
--- NOTE | 2025-06-05 11:32 | PTCARENOTE ---
Pt has been accepted in transfer to [place] under Dr. Raimundo Carmichael. Plan discussed with marketing outreach coordinator Dr. Edmonds, neurology ANIMAL PHYSIOLOGY TEACHER and Dr. Orourke, and attending Dr. Landrum. Clinical update given to [facility]. Pt and family updated. Pt stable
for downgrade out of IMU per Dr. Landrum.
--- NOTE | 2025-06-05 12:41 | PTCARENOTE ---
Pt turned and repositioned, back rubbed, CHG wipes done. Underpad changed. Left foot wound care done, pt tolerated well. Pt voided 500 mls clear yellow urine via condom cath, UA sent per orders. Care ongoing, Dad remains at bedside.
[2025-06-05 12:51] LABS: Glucose - Point of Care 309 mg/dl (70-99)
[2025-06-05] MEDS: NOVOLOG FLEXPEN 7 UNITS SC ×2 (12:55→17:57)
[2025-06-05] MEDS: NOVOLOG FLEXPEN-LOW RESISTANCE 4 UNITS SC (12:55)
[2025-06-05 13:03] LABS: Urine Character Clear (Clear)
--- NOTE | 2025-06-05 13:22 | PN.CDI ---
CDI
- -
CDI:
Physician Documentation Request
Admit Date: 05/31/25 15:54
Dear Doctor Diallo,
Patient presented to the ED with chest pain and shortness of breath with weakness. The exam at that time 'diminished breath sounds' respirations recorded 16-28. Patient spent some time on 6 L O2.
Please clarify which of the following accurately represents the patient's respiratory status on admission:
Acute respiratory failure - please specify type
Hypoxia
Other
Additional information for Respiratory Failure:
Recognized criteria for Respiratory Failure (Source: Navdeep Stanford. 2018September 20.
Documentation tips: Acute Respiratory Failure, The Hospitalist.)
ABGs: (1 or more) Symptoms Please indicate type if known
1. p)2 <60 or RA SPO2 <91% on RA 1. Tachypnea, SOB, dyspnea Hypoxic
2. pCO2 >45 and pH <7.35 2. Use of accessory muscles Hypercapnic
3. pO2 decrease of pCO2 increase by 3. Pallor or cyanosis Hypoxic and Hypercapnic
10 mmHg from baseline if known 4. Anxiety or restlessness
4. P/F Ratio (pO2/FiO2)nless than 300 5. Unable to speak in full sentences
Use of terms such as suspected, likely, concern for, or probable (associated with a specific diagnosis that is being evaluated, monitored, or treated as if it exists) are acceptable and can be coded in the inpatient setting, when documented at the
time of discharge.
Thank you,
Ceci Delaney RN, BSN
CDI Specialist
tiger text
Please use your independent medical judgment in providing your response.
--- NOTE | 2025-06-05 13:31 | CM ---
Patient for discharge to [facility] for acute specialized neurosurgical services. Awaiting bed availability.
[2025-06-05 14:07] LABS: ALT (SGPT) 13 U/L (0-50); AST (SGOT) 23 U/L (17-59); Albumin 3.5 g/dl (3.5-5.0); Alkaline Phosphatase 105 U/L (38-126); Total Protein 6.0 g/dl (6.3-8.2)
--- NOTE | 2025-06-05 14:37 | W.PN.CARDCBS ---
Today's Communication / Plan
-
Stable cardiology status
Neurologic evaluation ongoing for stroke alert
Eventual ischemic evaluation with neurostatus is stable
Discussed with clinical science consultant and nursing
Impression / Plan
-
PCP Dr. Dahl affiliated with [facility]
Cardiology: None, first seen by Dr Bruce Corral
Impression:
Stroke alert 06/04/2025 with expressive aphasia and transient right arm weakness, resolved
NSTEMI with peak troponin of 9.48 : Presented with chest pain, SOB and hypoxia 05/31/25
Acute on chronic combined systolic and diastolic heart failure
CM EF 15-20% by echo 05/31/25
Anterior and anterolateral WMA on echo 05/31/25
JASON on possible CKD
Anemia
Rectal heme negative 06/01/2025; heme stool pending, hemoglobin continues to downtrend
Hyperkalemia
Poorly controlled Type 1 diabetic since age 24
Hyperglycemia
PAD s/p right BKA
Acute HFrEF, improving
Echo 04/26/24: [facility] study, EF 55-60%, no significant valve disease
Echo 05/31/25: EF 15-20%, inferior and basal segments move best
Labs 11/08/2024: Labs from PCP office, blood sugar 210, BUN 34, creatinine 1.23, sodium 135, potassium 5.0, AST 17, ALT 17
Plan:
Events of stroke alert on 06/04 noted
Hold off on cardiac catheterization until neuro work-up has been completed
Consider treatment of possible cavernous sinus artery stenosis with possible [facility] transfer
For eventual ischemic workup when neurologic status has been stabilized and treated
Continue Coreg, Isordil, hydralazine
Volume status appears stable
.
Progress Note - Social Media Manager
Subjective
Date of Service: June 05, 2025
No complaints. Stroke alert overnight with resolution of symptoms.
Objective
Labs:
06/05/25 03:33
06/05/25 03:33
Labs
Hgb 9.1 g/dL (13.0-18.0) L 06/05/25 03:33
Hct 26.3 % (39.0-52.0) L 06/05/25 03:33
Plt Count 235 10^3/uL (130-400) 06/05/25 03:33
PT 13.6 Sec (11.4-14.6) 06/04/25 20:19
INR 1.01 06/04/25 20:19
APTT 93.6 Sec (23.4-35.0) H 06/05/25 09:26
Sodium 132 mmol/L (135-145) L 06/05/25 03:33
Potassium 4.6 mmol/L (3.5-5.1) 06/05/25 03:33
BUN 43 mg/dl (9-20) H 06/05/25 03:33
Creatinine 1.9 mg/dL (0.7-1.3) H 06/05/25 03:33
Glucose 166 mg/dl (70-99) H 06/05/25 03:33
Troponins
06/04/25
18:28
Troponin I 1.320 H*
Vital Signs and I&O:
Vital Signs
Temp Pulse Resp BP Pulse Ox
98.3 F 84 12 137/88 94
06/05/25 12:00 06/05/25 13:00 06/05/25 13:00 06/05/25 13:00 06/05/25 13:00
Vital Signs
Temp Pulse Resp BP Pulse Ox
98.3 F 84 12 137/88 94
06/05/25 12:00 06/05/25 13:00 06/05/25 13:00 06/05/25 13:00 06/05/25 13:00
Intake & Output
06/03/25 06/04/25 06/05/25 06/06/25
06:59 06:59 06:59 06:59
Intake Total 516 / 516 1210 / 1210 118 / 118
Output Total 1750 / 1750 2300 / 2300 1860 / 1860 500 / 500
Balance -1234 / -1234 -1090 / -1090 -1860 / -1860 -382 / -382
Physical Exam
Physical Exam
General: Well developed, well nourished in NAD.
Neck: Supple, no JVD, HJR, carotids +2 B/L, no bruits bilaterally.
Heart: Non displaced PMI, RRR, no murmurs, No S3, S4, no rubs.
Lungs: Scattered rhonchi
Extremities: No clubbing, cyanosis or edema bilaterally.
Neuro: Grossly nonfocal, awake, alert and oriented x3.
[2025-06-05 15:05] LABS: Urine Squamous Cell 0-2 /LPF (Few)
[2025-06-05 16:03] LABS: LDH 322 U/L (120-246)
[2025-06-05] MEDS: SENOKOT-S 1 TABLET PO (16:39)
[2025-06-05] MEDS: ISORDIL PO ×2 (16:44→22:10)
[2025-06-05] MEDS: LASIX IV (16:44)
[2025-06-05] MEDS: NOVOLOG FLEXPEN-LOW RESISTANCE 2 UNITS SC (17:57)
[2025-06-05] MEDS: LIPITOR 80 MG PO (17:58)
[2025-06-05 18:06] LABS: Glucose - Point of Care 228 mg/dl (70-99)
[2025-06-05 21:16] LABS: Glucose - Point of Care 172 mg/dl (70-99)
[2025-06-05] MEDS: COREG PO (21:43)
[2025-06-05] MEDS: LANTUS 0.17 UNITS SC (22:13)
[2025-06-06] VITALS (11 sets, daily range): BP systolic 114–136; BP diastolic 62–102; BMI 28.8
[2025-06-06 05:01] LABS: Hematocrit 24.3 % (39.0-52.0); Hemoglobin 8.4 g/dL (13.0-18.0); Mean Corp Hgb Conc. 34.6 g/dL (33.0-37.0); Mean Corpuscular Volume 88.4 fL (80.0-94.0); Platelet Count 206 10^3/uL (130-400); Red Cell Dist. Width 13.2 % (11.5-14.5)
[2025-06-06 05:11] LABS: APTT 133.4 Sec (23.4-35.0)
[2025-06-06] MEDS: HEPARIN 25000 UNITS/250 ML IV ×2 (05:14→17:45)
[2025-06-06 05:44] LABS: Blood Urea Nitrogen 47 mg/dl (9-20); Calcium 8.5 mg/dl (8.4-10.2); Carbon Dioxide 24 mmol/L (22-30); Chloride 101 mmol/L (98-107); Estimated Creatinine Clearance 48 ml/min; Glucose 95 mg/dl (70-99); Potassium 4.6 mmol/L (3.5-5.1); Sodium 133 mmol/L (135-145); eGFR 37.88
--- NOTE | 2025-06-06 06:22 | PTCARENOTE ---
Pt Aox3, NIH-0, flat affect, VSS, NSR on monitor, 2L O2 HS for sleep apnea. Pt denies pain. Remains on heparin gtt per protocol. Pt had large BM this morning. CHG bath completed. Plan to go to [place] today.
--- NOTE | 2025-06-06 07:00 | PTCARENOTE ---
Hand off completed by assistant casino shift manager, NIHSS 0. patient is AAOx3, is on room air, sinus rhythm on monitor. patient had episode of incontinence overnight. awaiting bed transfer to [place].
[2025-06-06 07:36] LABS: Glucose - Point of Care 161 mg/dl (70-99)
[2025-06-06] MEDS: COREG PO ×2 (08:06→19:54)
[2025-06-06] MEDS: ISORDIL PO ×3 (08:06→19:55)
[2025-06-06] MEDS: LASIX IV (08:06)
[2025-06-06] MEDS: LOW STRENGTH ASPIRIN 81 MG PO (08:06)
[2025-06-06] MEDS: PROTONIX 40 MG PO (08:06)
[2025-06-06] MEDS: NOVOLOG FLEXPEN-LOW RESISTANCE 1 UNITS SC ×2 (08:08→14:23)
--- NOTE | 2025-06-06 08:39 | PN.DE.MGMTRT ---
Insulin Management
- -
06/06/2025 Diabetes Management Consult Follow up
Patient admitted 05/31 with CP SOB - NSTEMI. H RBKA, type 1 diabetes since age 24. Prior to admission was taking lispro 6 units AC with lantus 14 units @ HS. A1C on admission 9.1%, cr 2.1, eGFR 40.06.
States he sees his primary doctor for ongoing diabetes care. Has glucose monitor with adequate supplies.
06/05 c/o headache, feeling dizzy, some aphasia and R arm weakness overnight . Patient transferred to ICU level of care - Stroke alert - CT head - negative.
06/06 Patient is awake alert and oriented, able to discuss diabetes care. Today no expressive aphasia or arm weakness. Father at bedside. Cr 2.2, eGFR 37.88. Glucose range yesterday 172 to 309. Venous glucose @ 4:30AM 95, POC fasting 161. Will
continue HS lantus 17 units and increase AC novolog to 9 units with low corrective.
Patient for transfer to [facility] for further workup.
Discussed with nurse.
Will Follow
Diabetes History
- -
Type of Diabetes: 1
Pre-Admission Diabetes Regimen
06/05/25 06/06/25
03:33 04:39
Creatinine 1.9 H 2.2 H
Lab Results
Hemoglobin A1c 9.1 % (4.0-5.6) H 05/31/25 17:20
Insulin Pump Settings
IP Diabetes Regimen
06/05/25 06/05/25 06/05/25
03:33 12:39 17:54
Glucose 166 H
POC Glucose 309 H 228 H
06/05/25 06/06/25 06/06/25
21:04 04:39 07:24
Glucose 95
POC Glucose 172 H 161 H
Meal type: Lunch
Meal type: Breakfast
Amount consumed: 100%
Amount consumed: 100%
Patient Education
[2025-06-06] MEDS: DAKIN'S SOLUTION 0.125% 1/4 STRENGTH 473 ML TOPICAL (08:42)
--- NOTE | 2025-06-06 08:43 | W.PN.HOSP.TC ---
Addendum entered and electronically signed by Misael Landrum MD 06/09/25 12:59:
Acute hypoxic respiratory failure noted sec to CHF
DKA not a valid diagnosis
Addendum entered and electronically signed by Misael Landrum MD 06/07/25 07:58:
Heart failure is acute systolic
Original Note:
Today's Communication/Plan
-
DC to [facility] when bed available
Assessment / Plan
Assessment / Plan
Mr. Leon is a 40-year-old male with a medical history of type 1 diabetes mellitus and PAD (status post BKA 2023) who presented with acute onset chest pain and shortness of breath. In the ED, he underwent CT angiography to evaluate which was
negative for pulmonary embolism but did show extensive bilateral pulmonary edema. Lab work revealed significantly elevated troponins. EKG did not show STEMI but did show nonspecific T wave abnormalities. Bedside echo showed severely reduced
ejection fraction with wall motion abnormalities. He was started on IV heparin drip and admitted for further evaluation and management.
Acute change in neurological status with dizziness, speech impairment ?expressive aphasia and transient right arm weakness - now resolved .suspected TIA.
No recurrent neurological symptoms
CT head neg
CT angio head and neck shows -
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 There is multifocal high-grade stenosis within the left cavernous ICA. Bilateral petrous, cavernous, and supraclinoid internal carotid arteries (ICAs) segments.
Allow permissive hypertension-aim to keep blood pressure more than 140
Continue with IV heparin
Continue with aspirin
Continue with statin
NSTEMI
acute HFrEF:
No chest pain or chest pressure or shortness of breath today
- Continue IV heparin drip
- Echocardiogram shows LVEF 15 to 20% with regional wall motion abnormalities
- Transitioned to Isordil, nitroglycerin drip was discontinued
- Continue aggressive diuresis with Lasix 40 mg IV twice daily as blood pressure permits
- Discontinue hydralazine with cardiomyopathy n need of permissive hypertension
- Beta-blockade with low-dose carvedilol 3.125 mg twice daily, titrate up as able
- Cardiology following, left and right heart cath tentatively planned for sometime early this week but now on hold due to above TIA
- Loaded with Plavix, continue antiplatelet treatment
- Daily p.o. PPI
- Abnormal lipids with triglycerides 454 and total cholesterol 310 (LDL 150, HDL 43)
-Continue with GDMT medication with permissive hypertension
Anemia:
- Initial hemoglobin at time of arrival was 10.3, has been trending slowly down despite presumed hemoconcentration with aggressive diuresis, hemoglobin was 7.4 on labs this morning
- Unclear etiology, no overt evidence of bleeding, checking stool for occult blood, likely contributed to by suspected CKD
- Transfused 1 unit PRBCs 06/03. HH stable
- Continuing PPI
- Would transfuse to maintain threshold greater than 8.0 considering NSTEMI
- Will check labs for hemolysis although doubt this is the issue -haptoglobin pending, LDH mildly elevated. reticulocyte count 2.8
- Normocytic and heme neg
- Iron studies suggest ACD - pt has JASON vs CKD which might be playing a role
- Heme input appreciated
JASON:
- Creatinine on initial labs 2.0-improving to 2.2 today
- No reported history of CKD, unknown baseline renal function
- Likely multifactorial due to poor perfusion in the setting of NSTEMI with acute HFrEF, also uncontrolled diabetes
- Monitor for improvement in renal function with diuresis
- Received contrast for CTA, will have to monitor renal function closely with upcoming left heart cath
Type 1 diabetes mellitus:
- Continue long and short acting insulin, currently at this 15 units at night add NovoLog 5 units with meals
- Additional sliding scale as needed
- Diabetic diet
- Continue Accu-Cheks
- Hemoglobin A1c 9.1%
Hyponatremia in the setting of hypovolemia-continue with diuretics and follow. Sodium 133 today
DVT prophylaxis: IV heparin
CODE STATUS: Full code
Discussed with CHILDREN COUNSELOR
Await transfer to [facility]
Dispo-IMU
Total time spent on today's encounter was 52 minutes which included time spent in counseling the patient/family regarding diagnosis and treatment plan as listed above, goals of care, and symptom management. Case was discussed with nursing staff,
specialists, and care coordinators/case management. All labs and imaging personally reviewed by me. Remainder the time spent in detailed review of previous records, lab data, imaging, and other medical provider documentation.
Anticipated Discharge: Today
Subjective/Interval History
-
Date of Service: June 06, 2025
No overnight events.
Patient denies any headache, dizziness, speech impairment or limb weakness.
Denies any chest pressure, chest pain, shortness of breath.
No nausea or vomiting. Tolerating diet.
No fever or chills.
Objective Data
-
Labs:
Laboratory Results
06/06/25
04:39
WBC 8.7
Hgb 8.4 L
Hct 24.3 L
Plt Count 206
APTT 133.4 H
Sodium 133 L
Potassium 4.6
Chloride 101
Carbon Dioxide 24
BUN 47 H
Creatinine 2.2 H
Glucose 95
Calcium 8.5
Vital Signs:
Vital Signs
Temp Pulse Resp BP Pulse Ox
98.3 F 84 15 128/74 91
06/06/25 07:40 06/06/25 08:06 06/06/25 06:00 06/06/25 08:06 06/06/25 06:00
I&O
06/05/25 06/06/25 06/07/25
06:59 06:59 06:59
Intake Total 578 / 599 42 / 42
Output Total 1860 / 1860 1100 / 1400 300 / 300
Balance -1860 / -1860 -522 / -801 -258 / -258
Physical Exam
-
General: Comfortable
Respiratory: Clear to Auscultation and Non Labored Respirations; Negative Accessory Resp Muscle Use
Cardiac: Regular Rhythm and S1/S2; Negative Tachycardic
GI: Soft and Nontender
Musculoskeletal: Other (Left BKA)
Neuro: AO x 3 and No Motor Deficits; Negative Tremors, Slurred Speech or Facial Droop
Psych: Calm; Negative Confused or Agitated
Data Reviewed
-
Labs: Labs Reviewed by me
[2025-06-06] MEDS: NOVOLOG FLEXPEN SC ×2 (09:59→17:57)
--- NOTE | 2025-06-06 09:59 | PN.CDI ---
CDI
- -
CDI:
Physician Documentation Request
Admit Date: 05/31/25 15:54
Dear Doctor Diallo
Patient presented to the ED with chest pain and shortness of breath. Positive troponin felt to be NSTEMI.
Past medical history DM 1, PAD
BNP 7670. IV lasix administered. Echo shows EF of 15-20%
Cardiology notes state 'Acute on chronic combined systolic and diastolic heart failure' and 'Acute HFrEF'
Hospitalist 'acute HFrEF'
In an attempt to clarify potentially conflicting documentation, please clarify the type and acuity of CHF you are evaluating, treating or monitoring.
Type Acuity
Systolic Acute
Combined Systolic/Diastolic Acute on Chronic
Other Other
Use of terms such as suspected, likely, concern for, or probable (associated with a specific diagnosis that is being evaluated, monitored, or treated as if it exists) are acceptable and can be coded in the inpatient setting, when documented at the
time of discharge.
Thank you,
Ceci Delaney RN BSN
CDI Specialist
tiger text
Please use your independent medical judgment in providing your response.
--- NOTE | 2025-06-06 10:08 | PN.CDI ---
CDI
- -
CDI:
Physician Documentation Request
Admit Date: 05/31/25 15:54
Dear Doctor Diallo,
06/05 Neurology consulted for abrupt onset of aphasia and difficulty with right upper extremity movement.
Hospitalist progress note states 'Acute change in neurological status with dizziness, speech impairment ?expressive aphasia and transient right arm weakness - now resolved .suspected TIA.'
Travel Services Professional consultation states 'Strokelike symptoms: Aphasia/right-sided upper extremity? Weakness/clumsiness. Suspected possible ischemic CVA'
In an attempt to clarify potentially conflicting documentation, please clarify the diagnosis associated with the stroke alert:
suspected TIA
suspected CVA
Other
Use of terms such as suspected, likely, concern for, or probable (associated with a specific diagnosis that is being evaluated, monitored, or treated as if it exists) are acceptable and can be coded in the inpatient setting, when documented at the
time of discharge.
Thank you,
Ceci Delaney RN, BSN
CDI Specialist
tiger text
Please use your independent medical judgment in providing your response.
--- NOTE | 2025-06-06 10:12 | W.PN.CARDCBS ---
Today's Communication / Plan
-
Stable cardiology status
Eventual transfer to [facility] for neurologic workup and possible treatment
Eventual ischemic evaluation with catheterization when neurostatus has been stabilized and can receive antiplatelet agents for possible stent
No signs or symptoms of CHF at present
Impression / Plan
-
PCP Dr. Dahl affiliated with [facility]
Cardiology: None, first seen by Dr Bruce Corral
Impression:
Stroke alert 06/04/2025 with expressive aphasia and transient right arm weakness, resolved
NSTEMI with peak troponin of 9.48 : Presented with chest pain, SOB and hypoxia 05/31/25
Acute on chronic combined systolic and diastolic heart failure
CM EF 15-20% by echo 05/31/25
Anterior and anterolateral WMA on echo 05/31/25
JASON on possible CKD
Anemia
Rectal heme negative 06/01/2025; heme stool pending, hemoglobin continues to downtrend
Hyperkalemia
Poorly controlled Type 1 diabetic since age 24
Hyperglycemia
PAD s/p right BKA
Acute HFrEF, improving
Echo 04/26/24: [facility] study, EF 55-60%, no significant valve disease
Echo 05/31/25: EF 15-20%, inferior and basal segments move best
Labs 11/08/2024: Labs from PCP office, blood sugar 210, BUN 34, creatinine 1.23, sodium 135, potassium 5.0, AST 17, ALT 17
Plan:
Stable cardiology status
Consider treatment of possible cavernous sinus artery stenosis with possible [facility] transfer
For eventual ischemic workup for severely reduced ejection fraction when neurologic status has been stabilized and treated
Continue Coreg, Isordil, hydralazine but doses have been held to avoid hypotension with neurologic event on 06/25
Volume status appears stable
Discussed with nursing
.
Progress Note - Hospital Nurse
Subjective
Date of Service: June 06, 2025
No chest pain or shortness of breath.
Objective
Labs:
06/06/25 04:39
06/06/25 04:39
Labs
Hgb 8.4 g/dL (13.0-18.0) L 06/06/25 04:39
Hct 24.3 % (39.0-52.0) L 06/06/25 04:39
Plt Count 206 10^3/uL (130-400) 06/06/25 04:39
PT 13.6 Sec (11.4-14.6) 06/04/25 20:19
INR 1.01 06/04/25 20:19
APTT 133.4 Sec (23.4-35.0) H 06/06/25 04:39
Sodium 133 mmol/L (135-145) L 06/06/25 04:39
Potassium 4.6 mmol/L (3.5-5.1) 06/06/25 04:39
BUN 47 mg/dl (9-20) H 06/06/25 04:39
Creatinine 2.2 mg/dL (0.7-1.3) H 06/06/25 04:39
Glucose 95 mg/dl (70-99) 06/06/25 04:39
Troponins
06/04/25
18:28
Troponin I 1.320 H*
Vital Signs and I&O:
Vital Signs
Temp Pulse Resp BP Pulse Ox
98.3 F 84 9 128/74 96
06/06/25 07:40 06/06/25 08:06 06/06/25 08:00 06/06/25 08:06 06/06/25 10:00
Vital Signs
Temp Pulse Resp BP Pulse Ox
98.3 F 84 9 128/74 96
06/06/25 07:40 06/06/25 08:06 06/06/25 08:00 06/06/25 08:06 06/06/25 10:00
Intake & Output
08/0406/05/25 06/06/25 06/07/25
06:59 06:59 06:59 06:59
Intake Total 1210 / 1210 578 / 599 84 / 84
Output Total 2300 / 2300 1860 / 1860 1100 / 1400 300 / 300
Balance -1090 / -1090 -1860 / -1860 -522 / -801 -216 / -216
Physical Exam
Physical Exam
General: Well developed, well nourished in NAD.
Neck: Supple, no JVD, HJR, carotids +2 B/L, no bruits bilaterally.
Heart: Non displaced PMI, RRR, no murmurs, No S3, S4, no rubs.
Lungs: Clear to auscultation bilaterally, no wheeze, rhonchi, rubs bilaterally,
normal expiratory phase.
Extremities: No clubbing, cyanosis or edema bilaterally.
Neuro: Grossly nonfocal, awake, alert and oriented x3.
--- NOTE | 2025-06-06 10:50 | W.PN.NEPH.PH ---
Today's Communication / Plan
-
follow labs, holding lasix
Assessment/Plan
-
40-year-old male type I diabetic since his 20s status post BKA on the right presents with chest pain and shortness of breath with weakness onset about 3 days ago describes a pressure in his chest intermittent
Renal consultation was requested for creatinine of 2 and a potassium of 6.4
Patient has never seen a wafer line worker but was told his kidney numbers were ' elevated' but unsure what his creatinine is normally.
Patient was found to have DKA as well as NSTEMI.
Status post CTA rule out PE negative
Impression.
Acute kidney injury (b/l 1.1 within last year)
HFrEF
Leukocytosis.
NSTEMI.
Hyperkalemia
Type 1 diabetes
DKA
proteinuria
Plan
cr increasing trend to 2.2 post contrast on 06/04
baseline cr at 1.2 from 11/2024
wt is down and improved vol status, hold lasix
plan to transfer to [place]
cath postponed with recent stroke alert
hopefully most of JASON is from CN and he will recover more function
follow labs
-
-
Date of Service: June 06, 2025
CC / HPI / ROS
-
Chief Complaint:
Presents with chest discomfort
History of Present Illness:
Acute and hyperkalemia with echo cardiogram finding ejection fraction 15 to 20% with DKA
JASON/Cr up at 2.2
Hgb low 8.4
BP stable
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
Review of Systems:.
No chest pain or shortness of breath
nonoliguric
no weakness of his right side
Labs
-
Labs:
WBC 8.7 10^3/uL (4.8-10.8) 06/06/25 04:39
RBC 2.75 10^6/uL (4.70-6.10) L 06/06/25 04:39
Hgb 8.4 g/dL (13.0-18.0) L 06/06/25 04:39
Hct 24.3 % (39.0-52.0) L 06/06/25 04:39
Plt Count 206 10^3/uL (130-400) 06/06/25 04:39
Sodium 133 mmol/L (135-145) L 06/06/25 04:39
Potassium 4.6 mmol/L (3.5-5.1) 06/06/25 04:39
Chloride 101 mmol/L (98-107) 06/06/25 04:39
Carbon Dioxide 24 mmol/L (22-30) 06/06/25 04:39
BUN 47 mg/dl (9-20) H 06/06/25 04:39
Creatinine 2.2 mg/dL (0.7-1.3) H 06/06/25 04:39
eGFR 37.88 06/06/25 04:39
Glucose 95 mg/dl (70-99) 06/06/25 04:39
Calcium 8.5 mg/dl (8.4-10.2) 06/06/25 04:39
Phosphorus 4.2 mg/dl (2.5-4.5) 06/04/25 23:02
Zoi-W-Cenrxdvfiqq Pept 7670 pg/ml 05/31/25 13:26
Albumin 3.5 g/dl (3.5-5.0) 06/05/25 03:33
Physical Exam
-
Vital Signs:
Vital Signs
Temp Pulse Resp BP Pulse Ox
98.3 F 84 9 128/74 96
06/06/25 07:40 06/06/25 08:06 06/06/25 08:00 06/06/25 08:06 06/06/25 10:00
Cardiovascular:: Regular rate and rhythm
Respiratory:: Bilateral: CTA
Lung Excursion:: Normal
Abdomen:: Nontender and Soft
Bowel Sounds:: Normal
Extremity Edema:: +1: Bilateral: (trace)
[place] Catheter: No
[2025-06-06] MEDS: NOVOLOG FLEXPEN 9 UNITS SC ×2 (11:19→14:23)
[2025-06-06 14:11] LABS: APTT 79.6 Sec (23.4-35.0)
--- NOTE | 2025-06-06 14:14 | PTCARENOTE ---
PTT is therapeutic. recheck 6 hours.
[2025-06-06 14:23] LABS: Glucose - Point of Care 192 mg/dl (70-99)
--- NOTE | 2025-06-06 14:44 | CM ---
Awaiting available bed to transfer to [facility] Neurosurgical services.
--- NOTE | 2025-06-06 16:15 | PTCARENOTE ---
Report called to Gaby at [phone]. patient going to [facility] june at [facility]. Rm [phone].
[2025-06-06 17:28] LABS: Glucose - Point of Care 181 mg/dl (70-99)
[2025-06-06] MEDS: LIPITOR 80 MG PO (17:47)
[2025-06-06] MEDS: NOVOLOG FLEXPEN-LOW RESISTANCE SC (17:57)
--- NOTE | 2025-06-06 20:00 | PTCARENOTE ---
Assumed care of pt. Patient to be transferred to [place] around 1999. Pt assessed, vitals obtained, scheduled PTT obtained as ordered for heparin gtt. Patient AOx3, no complaints of pain at this time. Updated pt and family that was bedside on plan of
care. Will continue to monitor. Call barnes within reach.
[2025-06-06 20:12] LABS: APTT 73.3 Sec (23.4-35.0)
--- NOTE | 2025-06-06 21:35 | PTCARENOTE ---
Pt picked up by acute care. Report given to medics, Pt remains and is being sent on heparin gtt running at 2100 units/hr. All IV's remain in place. Room checked for belongings. Report was given on dayshift to a nurse, blanca Griffin at [place].
--- NOTE | 2025-06-07 09:00 | CM ---
Patient was discharged to [facility] for acute specialized services with Neurosurgical team on 06/06/25 PM. Ambulance transport.
[2025-06-07 17:17] LABS: Beta-2-Glycoprotein I Ab. IgG <10 SGU (<=20); Beta-2-Glycoprotein I Ab. IgM <10 SMU (<=20)
[2025-06-09 03:11] LABS: Albumin 2.92 g/dL (3.75-5.01); Free Kappa Light Chains,Quant 35.64 mg/L (3.30-19.40); Free Lambda Light Chains,Quant 24.06 mg/L (5.71-26.30); Immunofixation Electrophoresis IFE Done; Kappa/Lambda Fr Light Ratio 1.48 (0.26-1.65); Total Protein-Electrophoresis 6.1 g/dL (6.3-8.2)
== END 2025-06-06 21:36 | disposition short-term general hospital (02) | DRG 280 ==
LOC: ICU 15:54
PROVIDERS: Emergency Medicine; Internal Medicine; Internal Medicine Cardiovascular Disease; Internal Medicine Hematology & Oncology; Nurse Practitioner Family; Physician Assistant Medical; ADMITTING PHYSICIAN Student in an Organized Health Care Education/Training Program; ATTENDING PHYSICIAN Internal Medicine; CONSULT PHYSICIAN Internal Medicine Critical Care Medicine; CONSULT PHYSICIAN Internal Medicine Nephrology; CONSULT PHYSICIAN Psychiatry & Neurology Neurology; EMERGENCY PHYSICIAN Emergency Medicine; FAMILY PHYSICIAN Internal Medicine; OTHER PHYSICIAN Internal Medicine Hematology & Oncology; OTHER PHYSICIAN Internal Medicine Interventional Cardiology
PROC: 30233N1 Transfusion of Nonautologous Red Blood Cells into Peripheral Vein, Percutaneous Approach (ICD-10-PCS; 2025-06-03)
DX: I21.4 Non-ST elevation (NSTEMI) myocardial infarction (principal); I50.21 Acute systolic (congestive) heart failure; J96.01 Acute respiratory failure with hypoxia; N17.9 Acute kidney failure, unspecified; R47.01 Aphasia; E87.1 Hypo-osmolality and hyponatremia; I42.0 Dilated cardiomyopathy; E10.22 Type 1 diabetes mellitus with diabetic chronic kidney disease; N18.9 Chronic kidney disease, unspecified; Z89.511 Acquired absence of right leg below knee; E10.51 Type 1 diabetes mellitus with diabetic peripheral angiopathy without gangrene; E86.1 Hypovolemia; Z79.4 Long term (current) use of insulin; E87.5 Hyperkalemia; Z79.82 Long term (current) use of aspirin; I65.23 Occlusion and stenosis of bilateral carotid arteries; I77.1 Stricture of artery; K59.00 Constipation, unspecified; R29.701 NIHSS score 1; Z83.2 Family history of diseases of the blood and blood-forming organs and certain disorders involving the immune mechanism; Z83.3 Family history of diabetes mellitus; D63.1 Anemia in chronic kidney disease; Z11.52 Encounter for screening for COVID-19
CPT/HCPCS: 0042T; 70450; 70496; 70498; 71045; 71275; 76775; 80048; 80053; 80061; 80076; 81003; 81015; 82010; 82248; 82570; 82607; 82728; 82746; 82784; 82947; 82962; 83010; 83036; 83521; 83540; 83550; 83605; 83615; 83721; 83735; 83880; 84100; 84155; 84156; 84165; 84300; 84443; 84484; 85014; 85018; 85025; 85027; 85045; 85576; 85610; 85730; 86146; 86147; 86334; 86850; 86900; 86901; 86920; 87040; 87070; 87077; 87086; 87502; 87811; 93005; 93306; 96365; 96367; 96375; 99291; P9016; Q9950; Q9967